=== PATIENT | female | born 1950 | race Caucasian/White ===

== ENCOUNTER 2018-12-04 12:29 | Outpatient (RCR) | payer MEDICARE, OTHER ==
[~2018-12-04] VITALS: Ht 160 cm; Wt 81.6 kg
[~2018-12-04 12:29] MED LIST: ESCT10T; HCTZ12.5T; IRB150T; MELO7.5T; RLX60T
[2018-12-04] MEDS ORDERED: [UNRECOGNIZED DRUG - REMARK] IV ONE (13:00)
[2018-12-04] MEDS ORDERED: [UNRECOGNIZED DRUG - REMARK] IV NR ×4 (13:15)
[2018-12-04 13:31] LABS: HEMOGLOBIN 11.9 G/DL (11.5-16.0); MEAN PLATELET VOLUME 11.3 FL (7.4-10.4); RED CELL DISTRIBUTION WIDTH 15.3 % (10.0-14.5); WHITE BLOOD COUNT 8.2 10^3/uL (4.3-11.0)
[2018-12-04 13:43] LABS: ALBUMIN 3.9 GM/DL (3.2-4.5); BILIRUBIN,DIRECT 0.2 MG/DL (0.0-0.3); BILIRUBIN,INDIRECT 0.5 MG/DL; BILIRUBIN,TOTAL 0.7 MG/DL (0.1-1.0); TOTAL PROTEIN 6.5 GM/DL (6.4-8.2)
[2018-12-04 14:18] VITALS: BP 144/77
== END 2019-03-04 | disposition home or self-care (01) ==
LOC: SDC 12:29
PROVIDERS: ATTEND Internal Medicine Rheumatology
DX: M05.79 Rheumatoid arthritis with rheumatoid factor of multiple sites without organ or systems involvement (principal)
CPT/HCPCS: 36415; 80076; 85027; 96365; J0129

== ENCOUNTER → 2019-04-28 | Outpatient (CLI) | payer MEDICARE, OTHER ==
[~2019-04-28] VITALS: Ht 160 cm; Wt 81.6 kg
[~2019-04-28] MED LIST changes: +ABATACEPT IV NR; +ABATACEPT IV ONE; +ABATACEPT IV SCH; +NS IV NR; +NS IV ONE; +SODIUM CHLORIDE IV SCH; +[UNRECOGNIZED DRUG - REMARK] IV NR
[2019-04-28 12:36] LABS: HEMOGLOBIN 12.3 G/DL (11.5-16.0); MEAN PLATELET VOLUME 10.9 FL (7.4-10.4); RED CELL DISTRIBUTION WIDTH 14.9 % (10.0-14.5); WHITE BLOOD COUNT 7.5 10^3/uL (4.3-11.0)
[2019-04-28 12:54] LABS: BILIRUBIN,DIRECT 0.3 MG/DL (0.0-0.3); BILIRUBIN,INDIRECT 0.4 MG/DL; BILIRUBIN,TOTAL 0.7 MG/DL (0.1-1.0); TOTAL PROTEIN 6.4 GM/DL (6.4-8.2)
[2019-04-28 13:14] VITALS: BP 115/41
== END ==
LOC: SDC 12:19
PROVIDERS: ATTEND Internal Medicine Rheumatology
DX: M06.9 Rheumatoid arthritis, unspecified (principal)
CPT/HCPCS: 36415; 80076; 85027; J0129

== ENCOUNTER 2019-07-27 12:12 | Outpatient (RCR) | payer MEDICARE, OTHER ==
[2019-05-26 12:00] VITALS: BP 139/83
[2019-06-23 12:05] VITALS: BP 150/82
[2019-06-23 12:42] LABS: HEMOGLOBIN 12.4 G/DL (11.5-16.0); MEAN PLATELET VOLUME 10.6 FL (7.4-10.4); RED CELL DISTRIBUTION WIDTH 15.2 % (10.0-14.5); WHITE BLOOD COUNT 7.6 10^3/uL (4.3-11.0)
[2019-06-23 13:01] LABS: ALBUMIN 3.9 GM/DL (3.2-4.5); BILIRUBIN,DIRECT 0.3 MG/DL (0.0-0.3); BILIRUBIN,INDIRECT 0.5 MG/DL; BILIRUBIN,TOTAL 0.8 MG/DL (0.1-1.0); TOTAL PROTEIN 6.3 GM/DL (6.4-8.2)
[~2019-07-27 12:12] MED LIST changes: -ABATACEPT IV NR; -ABATACEPT IV ONE; -ABATACEPT IV SCH; -NS IV NR; -NS IV ONE; -SODIUM CHLORIDE IV SCH; +ceFAZolin INJECTION 1,000 MG ONE
[2019-07-27] MEDS ORDERED: [UNRECOGNIZED DRUG - REMARK] IV NR (12:30)
[2019-07-27 13:30] VITALS: BP 151/72
== END 2019-08-24 | disposition home or self-care (01) ==
LOC: SDC 12:12
PROVIDERS: ATTEND Internal Medicine Rheumatology
DX: M05.79 Rheumatoid arthritis with rheumatoid factor of multiple sites without organ or systems involvement (principal)
CPT/HCPCS: 36415; 80076; 85027; 96365; J0129

== ENCOUNTER 2019-08-25 10:34 | Outpatient (RCR) | payer MEDICARE, OTHER ==
[~2019-08-25] VITALS: Ht 165.1 cm
[~2019-08-25 10:34] MED LIST changes: -[UNRECOGNIZED DRUG - REMARK] IV NR; -ceFAZolin INJECTION 1,000 MG ONE
[2019-08-25 10:45] VITALS: BP 151/92
[2019-08-25] MEDS ORDERED: ABATACEPT IV SCH ×2 (10:45)
[2019-08-25] MEDS ORDERED: SODIUM CHLORIDE IV SCH ×2 (10:45)
[2019-08-25 11:03] LABS: HEMOGLOBIN 12.4 G/DL (11.5-16.0); MEAN PLATELET VOLUME 10.8 FL (7.4-10.4); RED CELL DISTRIBUTION WIDTH 14.6 % (10.0-14.5); WHITE BLOOD COUNT 7.5 10^3/uL (4.3-11.0)
[2019-08-25 11:22] LABS: ALBUMIN 4.1 GM/DL (3.2-4.5); BILIRUBIN,DIRECT 0.3 MG/DL (0.0-0.3); BILIRUBIN,INDIRECT 0.5 MG/DL; BILIRUBIN,TOTAL 0.8 MG/DL (0.1-1.0); TOTAL PROTEIN 6.3 GM/DL (6.4-8.2)
== END 2019-09-14 12:30 | disposition home or self-care (01) ==
LOC: SDC 10:34
PROVIDERS: ATTEND Internal Medicine Rheumatology
DX: M05.79 Rheumatoid arthritis with rheumatoid factor of multiple sites without organ or systems involvement (principal)
CPT/HCPCS: 36415; 80076; 85027; 96365; J0129

== ENCOUNTER → 2020-02-08 | Outpatient (CLI) | payer MEDICARE, OTHER ==
[~2020-02-08] MED LIST changes: +LIDOCAINE 1% INJ 20 ML 20 ML VIAL INJ ONE; +LIDOCAINE 1% INJ 20 ML 20 ML VIAL ONE
--- NOTE | 2020-02-08 18:23 | Diagnostic Imaging Report ---
INDICATION: Right breast nodule. Patient presents for ultrasound-guided biopsy. Correlation is made with outside imaging of the breast with ultrasound and mammography from [facility]. FINDINGS: Sonographic interrogation of the inner aspect of the right breast was performed. The previously noted hypoechoic nodule at the 4 o'clock location is not appreciated on today's study. There is a cluster of cysts at the 3 o'clock location, 5 cm from the nipple, in aggregate measuring 7 mm x 3 mm x 6 mm. This cyst cluster most likely accounts for the medial density noted mammographically. No concerning sonographic abnormality is identified on today's exam. Therefore, biopsy was not performed. IMPRESSION: Cyst cluster at 3 o'clock location in right breast 5 cm from the nipple. No concerning sonographic abnormality is seen. Biopsy was canceled. Follow-up right mammogram and right breast ultrasound in six months could be performed to confirm stability. ACR BI-RADS Category 3: Probably benign findings. Result letter will be mailed to the patient. Note: At least 10% of breast cancer is not imaged by mammography. Dictated by: Dictated on workstation # [id number]
== END ==
LOC: RAD 12:07
PROVIDERS: ATTEND Family Medicine
DX: N60.01 Solitary cyst of right breast (principal)

== ENCOUNTER → 2020-05-10 | Outpatient (CLI) | payer MEDICARE, OTHER ==
[~2020-05-10] VITALS: Ht 161.3 cm; Wt 84.0 kg
[~2020-05-10] MED LIST changes: +GOLIMUMAB IV SCH; -LIDOCAINE 1% INJ 20 ML 20 ML VIAL INJ ONE; -LIDOCAINE 1% INJ 20 ML 20 ML VIAL ONE; +SODIUM CHLORIDE IV SCH
[2020-05-10 10:45] VITALS: BP 142/93
[2020-05-10 11:27] LABS: HEMOGLOBIN 12.5 G/DL (11.5-16.0); MEAN PLATELET VOLUME 11.1 FL (7.4-10.4); WHITE BLOOD COUNT 7.7 10^3/uL (4.3-11.0)
[2020-05-10 11:39] LABS: ALANINE AMINOTRANSFERASE 38 U/L (0-55); ALBUMIN 3.9 GM/DL (3.2-4.5); ALKALINE PHOSPHATASE 50 U/L (40-136); BILIRUBIN,TOTAL 0.8 MG/DL (0.1-1.0); BUN/CREATININE RATIO 20; CALCIUM 8.9 MG/DL (8.5-10.1); CARBON DIOXIDE 26 MMOL/L (21-32); CHLORIDE 102 MMOL/L (98-107); CREATININE SERUM 0.71 MG/DL (0.60-1.30); GFR ESTIMATED > 60; GLUCOSE 106 MG/DL (70-105); POTASSIUM 3.6 MMOL/L (3.6-5.0); SODIUM 135 MMOL/L (135-145); TOTAL PROTEIN 6.7 GM/DL (6.4-8.2)
[2020-05-10 11:45] VITALS: BP 154/78
== END ==
LOC: SDC 05-09 10:54
PROVIDERS: ATTEND Internal Medicine Rheumatology
DX: M05.79 Rheumatoid arthritis with rheumatoid factor of multiple sites without organ or systems involvement (principal)
CPT/HCPCS: 36415; 80053; 85027; 96365

== ENCOUNTER → 2020-07-14 | Outpatient (CLI) | payer MEDICARE, OTHER ==
[~2020-07-14] VITALS: Ht 161.3 cm; Wt 84.1 kg
[~2020-07-14] MED LIST changes: +GOLIMUMAB IV ONE; -GOLIMUMAB IV SCH; +NS IV ONE; -SODIUM CHLORIDE IV SCH
[2020-07-14 10:25] VITALS: BP 132/78
[2020-07-14 11:02] LABS: MEAN PLATELET VOLUME 10.7 fL (9.0-12.2); WHITE BLOOD COUNT 7.6 10^3/uL (4.3-11.0)
[2020-07-14 11:13] LABS: ALBUMIN 3.9 GM/DL (3.2-4.5); CHLORIDE 101 MMOL/L (98-107)
[2020-07-14 11:14] LABS: POTASSIUM 3.5 MMOL/L (3.6-5.0); SODIUM 136 MMOL/L (135-145)
[2020-07-14 11:15] LABS: CALCIUM 8.8 MG/DL (8.5-10.1)
[2020-07-14 11:16] LABS: GLUCOSE 106 MG/DL (70-105); TOTAL PROTEIN 6.4 GM/DL (6.4-8.2)
[2020-07-14 11:17] LABS: CARBON DIOXIDE 25 MMOL/L (21-32)
[2020-07-14 11:18] LABS: BILIRUBIN,TOTAL 0.7 MG/DL (0.1-1.0)
[2020-07-14 11:19] LABS: ALKALINE PHOSPHATASE 62 U/L (40-136)
[2020-07-14 11:20] LABS: CREATININE SERUM 0.77 MG/DL (0.60-1.30); GFR ESTIMATED > 60
[2020-07-14 11:21] LABS: BUN/CREATININE RATIO 25
[2020-07-14 11:22] LABS: ALANINE AMINOTRANSFERASE 29 U/L (0-55)
== END ==
LOC: SDC 10:19
PROVIDERS: ATTEND Internal Medicine Rheumatology
DX: M05.79 Rheumatoid arthritis with rheumatoid factor of multiple sites without organ or systems involvement (principal)
CPT/HCPCS: 36415; 80053; 85027; 96365

== ENCOUNTER 2020-09-07 10:16 | Outpatient (CLI) | payer MEDICARE, OTHER ==
[~2020-09-07] VITALS: Ht 162.5 cm; Wt 86.8 kg
[~2020-09-07 10:16] MED LIST changes: -GOLIMUMAB IV ONE; -NS IV ONE
[2020-09-07 10:30] VITALS: BP 141/93
[2020-09-07] MEDS ORDERED: GOLIMUMAB IV ONE (11:00)
[2020-09-07] MEDS ORDERED: NS IV ONE (11:00)
[2020-09-07 12:15] LABS: BASOPHILS # (AUTO) 0.1 10^3/uL (0.0-0.1); BASOPHILS % (AUTO) 1 % (0-10); EOSINOPHILS # (AUTO) 0.1 10^3/uL (0.0-0.3); EOSINOPHILS % (AUTO) 2 % (0-10); HEMATOCRIT 36 % (35-52); HEMOGLOBIN 11.8 g/dL (11.5-16.0); LYMPHOCYTES # (AUTO) 2.2 10^3/uL (1.0-4.0); LYMPHOCYTES % (AUTO) 32 % (12-44); MEAN CORPUSCULAR HEMOGLOBIN 30 pg (25-34); MEAN CORPUSCULAR HGB CONC 33 g/dL (32-36); MEAN CORPUSCULAR VOLUME 91 fL (80-99); MEAN PLATELET VOLUME 10.5 fL (9.0-12.2); MONOCYTES # (AUTO) 0.5 10^3/uL (0.0-1.0); MONOCYTES % (AUTO) 7 % (0-12); NEUTROPHILS % (AUTO) 59 % (42-75); PLATELET COUNT 233 10^3/uL (130-400); WHITE BLOOD COUNT 6.8 10^3/uL (4.3-11.0)
[2020-09-07 12:31] LABS: ALBUMIN 3.7 GM/DL (3.2-4.5)
[2020-09-07 12:32] LABS: CHLORIDE 102 MMOL/L (98-107); POTASSIUM 3.3 MMOL/L (3.6-5.0); SODIUM 139 MMOL/L (135-145)
[2020-09-07 12:34] LABS: GLUCOSE 85 MG/DL (70-105); TOTAL PROTEIN 6.2 GM/DL (6.4-8.2)
[2020-09-07 12:35] LABS: CARBON DIOXIDE 27 MMOL/L (21-32)
[2020-09-07 12:36] LABS: BILIRUBIN,TOTAL 0.5 MG/DL (0.1-1.0)
[2020-09-07 12:38] LABS: ALKALINE PHOSPHATASE 46 U/L (40-136); CREATININE SERUM 0.76 MG/DL (0.60-1.30); GFR ESTIMATED > 60
[2020-09-07 12:39] LABS: BUN/CREATININE RATIO 18
[2020-09-07 12:41] LABS: ALANINE AMINOTRANSFERASE 30 U/L (0-55)
== END 2020-09-07 12:10 | disposition home or self-care (01) ==
LOC: SDC 10:16
PROVIDERS: ATTEND Internal Medicine Rheumatology
DX: M05.79 Rheumatoid arthritis with rheumatoid factor of multiple sites without organ or systems involvement (principal)
CPT/HCPCS: 36415; 80053; 85025; 96365

== ENCOUNTER → 2020-11-01 | Outpatient (CLI) | payer MEDICARE, OTHER ==
[~2020-11-01] VITALS: Ht 165.1 cm; Wt 86.8 kg
[2020-11-01 10:41] LABS: HEMOGLOBIN 12.2 g/dL (11.5-16.0); MEAN PLATELET VOLUME 10.8 fL (9.0-12.2); WHITE BLOOD COUNT 7.4 10^3/uL (4.3-11.0)
[2020-11-01 11:02] LABS: ALANINE AMINOTRANSFERASE 41 U/L (0-55); ALBUMIN 3.9 GM/DL (3.2-4.5); ALKALINE PHOSPHATASE 50 U/L (40-136); BILIRUBIN,TOTAL 0.8 MG/DL (0.1-1.0); BUN/CREATININE RATIO 21; CALCIUM 8.9 MG/DL (8.5-10.1); CARBON DIOXIDE 27 MMOL/L (21-32); CHLORIDE 102 MMOL/L (98-107); CREATININE SERUM 0.78 MG/DL (0.60-1.30); GFR ESTIMATED > 60; GLUCOSE 103 MG/DL (70-105); POTASSIUM 3.5 MMOL/L (3.6-5.0); SODIUM 137 MMOL/L (135-145); TOTAL PROTEIN 6.5 GM/DL (6.4-8.2)
[2020-11-01 11:20] VITALS: BP 153/97
== END ==
LOC: SDC 10:04
PROVIDERS: ATTEND Internal Medicine Rheumatology
DX: M05.79 Rheumatoid arthritis with rheumatoid factor of multiple sites without organ or systems involvement (principal)
CPT/HCPCS: 36415; 80053; 85027

== ENCOUNTER → 2020-11-01 | Outpatient (CLI) | payer MEDICARE, OTHER ==
[2020-11-01 10:41] LABS: HEMOGLOBIN 12.2 g/dL (11.5-16.0); MEAN PLATELET VOLUME 10.8 fL (9.0-12.2); WHITE BLOOD COUNT 7.4 10^3/uL (4.3-11.0)
[2020-11-01 11:02] LABS: ALANINE AMINOTRANSFERASE 41 U/L (0-55); ALBUMIN 3.9 GM/DL (3.2-4.5); ALKALINE PHOSPHATASE 50 U/L (40-136); BILIRUBIN,TOTAL 0.8 MG/DL (0.1-1.0); BUN/CREATININE RATIO 21; CALCIUM 8.9 MG/DL (8.5-10.1); CARBON DIOXIDE 27 MMOL/L (21-32); CHLORIDE 102 MMOL/L (98-107); CREATININE SERUM 0.78 MG/DL (0.60-1.30); GFR ESTIMATED > 60; GLUCOSE 103 MG/DL (70-105); POTASSIUM 3.5 MMOL/L (3.6-5.0); SODIUM 137 MMOL/L (135-145); TOTAL PROTEIN 6.5 GM/DL (6.4-8.2)
== END ==
LOC: LAB 10:15
PROVIDERS: ATTEND Internal Medicine Rheumatology
DX: M05.79 Rheumatoid arthritis with rheumatoid factor of multiple sites without organ or systems involvement (principal)
CPT/HCPCS: 36415; 80053; 85027

== ENCOUNTER → 2020-12-30 | Outpatient (CLI) | payer MEDICARE, OTHER ==
[~2020-12-30] MED LIST changes: +GOLIMUMAB IV ONE; +NS IV ONE
[2020-12-30 10:35] LABS: BASOPHILS # (AUTO) 0.1 10^3/uL (0.0-0.1); BASOPHILS % (AUTO) 1 % (0-10); EOSINOPHILS # (AUTO) 0.2 10^3/uL (0.0-0.3); EOSINOPHILS % (AUTO) 2 % (0-10); HEMATOCRIT 38 % (35-52); HEMOGLOBIN 12.3 g/dL (11.5-16.0); LYMPHOCYTES # (AUTO) 2.1 10^3/uL (1.0-4.0); LYMPHOCYTES % (AUTO) 27 % (12-44); MEAN CORPUSCULAR HEMOGLOBIN 30 pg (25-34); MEAN CORPUSCULAR HGB CONC 33 g/dL (32-36); MEAN CORPUSCULAR VOLUME 92 fL (80-99); MEAN PLATELET VOLUME 10.5 fL (9.0-12.2); MONOCYTES # (AUTO) 0.5 10^3/uL (0.0-1.0); MONOCYTES % (AUTO) 7 % (0-12); NEUTROPHILS # (AUTO) 4.8 10^3/uL (1.8-7.8); NEUTROPHILS % (AUTO) 63 % (42-75); PLATELET COUNT 239 10^3/uL (130-400); WHITE BLOOD COUNT 7.7 10^3/uL (4.3-11.0)
[2020-12-30 10:45] LABS: ALBUMIN 3.9 GM/DL (3.2-4.5); CHLORIDE 99 MMOL/L (98-107); POTASSIUM 3.5 MMOL/L (3.6-5.0); SODIUM 136 MMOL/L (135-145)
[2020-12-30 10:46] LABS: CALCIUM 8.9 MG/DL (8.5-10.1)
[2020-12-30 10:47] LABS: GLUCOSE 109 MG/DL (70-105); TOTAL PROTEIN 6.5 GM/DL (6.4-8.2)
[2020-12-30 10:48] LABS: CARBON DIOXIDE 28 MMOL/L (21-32)
[2020-12-30 10:49] LABS: BILIRUBIN,TOTAL 0.7 MG/DL (0.1-1.0)
[2020-12-30 10:51] LABS: ALKALINE PHOSPHATASE 54 U/L (40-136); CREATININE SERUM 0.73 MG/DL (0.60-1.30); GFR ESTIMATED > 60
[2020-12-30 10:52] LABS: BUN/CREATININE RATIO 16
[2020-12-30 10:54] LABS: ALANINE AMINOTRANSFERASE 28 U/L (0-55)
[2020-12-30 11:10] VITALS: BP_SYST 123; BP_SYST 172; BP_DIAS 56; BP_DIAS 80
== END ==
LOC: SDC 09:56
PROVIDERS: ATTEND Internal Medicine Rheumatology
DX: M05.9 Rheumatoid arthritis with rheumatoid factor, unspecified (principal)
CPT/HCPCS: 36415; 80053; 85025; 96365

== ENCOUNTER 2021-02-24 09:48 | Outpatient (CLI) | payer MEDICARE, OTHER ==
[~2021-02-24] VITALS: Ht 161.3 cm; Wt 84.0 kg
[2021-02-24 08:50] VITALS: BP 158/84
[~2021-02-24 09:48] MED LIST changes: -GOLIMUMAB IV ONE; -NS IV ONE
[2021-02-24 10:44] LABS: BASOPHILS % (AUTO) 1 % (0-10); EOSINOPHILS # (AUTO) 0.2 10^3/uL (0.0-0.3); EOSINOPHILS % (AUTO) 3 % (0-10); HEMATOCRIT 38 % (35-52); HEMOGLOBIN 12.2 g/dL (11.5-16.0); LYMPHOCYTES % (AUTO) 31 % (12-44); MEAN CORPUSCULAR HEMOGLOBIN 30 pg (25-34); MEAN CORPUSCULAR HGB CONC 32 g/dL (32-36); MEAN CORPUSCULAR VOLUME 92 fL (80-99); MEAN PLATELET VOLUME 10.5 fL (9.0-12.2); MONOCYTES # (AUTO) 0.6 10^3/uL (0.0-1.0); MONOCYTES % (AUTO) 8 % (0-12); NEUTROPHILS # (AUTO) 3.7 10^3/uL (1.8-7.8); NEUTROPHILS % (AUTO) 56 % (42-75); PLATELET COUNT 235 10^3/uL (130-400); WHITE BLOOD COUNT 6.6 10^3/uL (4.3-11.0)
[2021-02-24] MEDS ORDERED: NS IV NR (11:00)
[2021-02-24] MEDS ORDERED: GOLIMUMAB IV NR (11:00)
[2021-02-24 11:02] LABS: ALANINE AMINOTRANSFERASE 33 U/L (0-55); ALBUMIN 3.8 GM/DL (3.2-4.5); ALKALINE PHOSPHATASE 61 U/L (40-136); BILIRUBIN,TOTAL 0.6 MG/DL (0.1-1.0); BUN/CREATININE RATIO 23; CALCIUM 9.4 MG/DL (8.5-10.1); CARBON DIOXIDE 27 MMOL/L (21-32); CHLORIDE 103 MMOL/L (98-107); CREATININE SERUM 0.73 MG/DL (0.60-1.30); GFR ESTIMATED > 60; GLUCOSE 103 MG/DL (70-105); POTASSIUM 3.6 MMOL/L (3.6-5.0); SODIUM 139 MMOL/L (135-145); TOTAL PROTEIN 6.3 GM/DL (6.4-8.2)
== END 2021-02-24 12:00 | disposition home or self-care (01) ==
LOC: SDC 09:48
PROVIDERS: ATTEND Internal Medicine Rheumatology
DX: M05.79 Rheumatoid arthritis with rheumatoid factor of multiple sites without organ or systems involvement (principal)
CPT/HCPCS: 36415; 36591; 80053; 85025; 96365; 96523

== ENCOUNTER 2021-03-15 11:46 | Emergency (ER) | payer MEDICARE, OTHER ==
[~2021-03-15] VITALS: Ht 160 cm; Wt 85.0 kg
--- NOTE | 2021-03-15 12:14 | ED General ---
General Chief Complaint: - Urinary Stated Complaint: COVID+; NOT URINATING History of Present Illness Date Seen by Provider: Mar 15, 2021 Time Seen by Provider: 12:05 Initial Comments 70-year-old female presents with generalized malaise, not feeling well since having Covid 2 days ago feels like she is getting worse. Was diagnosed at a local urgent care and sent home with "no treatment". She feels like she is not urinating very often although she has been drinking fluids denies any chest pain or wheezing or significant shortness of air. Denies any chest pain or tightness. Denies abdominal pain nausea vomiting. Allergies and Home Medications Allergies Coded Allergies: Latex (Unverified Allergy, Unknown, 08/08/06) Morphine (Unverified Allergy, Unknown, WATER BLISTERS, PT THINKS IT IS DUE TO LATEX, 08/13/06) Home Medications Sulfamethoxazole/Trimethoprim 1 Each Tablet, 1 EACH PO BID Prescribed by: NADEEM LESLIE on 03/15/21 4767 Patient Home Medication List Home Medication List Reviewed: Yes Review of Systems Review of Systems Constitutional: No chills, No dizziness, No fever; malaise, weakness EENTM: no symptoms reported Respiratory: cough; No short of breath, No wheezing Cardiovascular: No chest pain, No edema, No palpitations, No syncope Gastrointestinal: No abdominal pain, No diarrhea; loss of appetite; No nausea, No vomiting Musculoskeletal: No back pain; joint pain (chronic- RA) Skin: No change in color, No lesions, No rash Psychiatric/Neurological: Denies Headache; Weakness Past Wmxsmne-Yjntbp-Fpbopl Hx Patient Social History Tobacco Use?: Yes Past Medical History Reproductive Disorders: No Physical Exam Vital Signs Vital Signs - First Documented 03/15/21 11:55 Temp 36.5 Pulse 67 Resp 18 B/P (MAP) 125/45 (71) Pulse Ox 98 O2 Delivery Room Air Capillary Refill : Height, Weight, BMI Height: 5'3.00" Weight: 180lbs. 0.0oz. [id number]; 32.32 BMI Method: General Appearance: No Apparent Distress, WD/WN Respiratory: Chest Non Tender, Lungs Clear, Normal Breath Sounds, No Accessory Muscle Use, No Respiratory Distress Cardiovascular: Regular Rate, Rhythm, No Edema, No Gallop, No JVD Gastrointestinal: Normal Bowel Sounds, Non Tender, Soft Back: Normal Inspection, No CVA Tenderness Extremity: Normal Capillary Refill, Non Tender Neurologic/Psychiatric: Alert, Oriented x3, No Motor/Sensory Deficits, Normal Mood/Affect Focused Exam Lactate Level 03/15/21 12:25: Lactic Acid Level 0.62 Lactic Acid Level Laboratory Tests Test 03/15/21 12:25 Lactic Acid Level 0.62 MMOL/L (0.50-2.00) Progress/Results/Core Measures Suspected Sepsis SIRS Temperature: Pulse: Respiratory Rate: Laboratory Tests 03/15/21 12:25: White Blood Count 5.8 Blood Pressure / Mean: 03/15/21 12:25: Lactic Acid Level 0.62 Laboratory Tests 03/15/21 12:25: Creatinine 0.99, Platelet Count 162, Total Bilirubin 0.4 Results/Orders Lab Results Laboratory Tests Test 03/15/21 12:25 03/15/21 13:15 Range/Units White Blood Count 5.8 4.3-11.0 10^3/uL Red Blood Count 4.21 L 4.35-5.85 10^6/uL Hemoglobin 12.2 11.5-16.0 G/DL Hematocrit 38 35-52 % Mean Corpuscular Volume 90 80-99 FL Mean Corpuscular Hemoglobin 29 25-34 PG Mean Corpuscular Hemoglobin Concent 32 32-36 G/DL Red Cell Distribution Width 14.6 H 10.0-14.5 % Platelet Count 162 130-400 10^3/uL Mean Platelet Volume 10.4 7.4-10.4 FL Immature Granulocyte % (Auto) 1 % Neutrophils (%) (Auto) 67 42-75 % Lymphocytes (%) (Auto) 23 12-44 % Monocytes (%) (Auto) 9 0-12 % Eosinophils (%) (Auto) 0 0-10 % Basophils (%) (Auto) 0 0-10 % Neutrophils # (Auto) 3.9 1.8-7.8 X 10^3 Lymphocytes # (Auto) 1.3 1.0-4.0 X 10^3 Monocytes # (Auto) 0.5 0.0-1.0 X 10^3 Eosinophils # (Auto) 0.0 0.0-0.3 10^3/uL Basophils # (Auto) 0.0 0.0-0.1 10^3/uL Immature Granulocyte # (Auto) 0.3 H 0.0-0.1 10^3/uL Sodium Level 132 L 135-145 MMOL/L Potassium Level 3.2 L 3.6-5.0 MMOL/L Chloride Level 93 L 98-107 MMOL/L Carbon Dioxide Level 25 21-32 MMOL/L Anion Gap 14 5-14 MMOL/L Blood Urea Nitrogen 26 H 7-18 MG/DL Creatinine 0.99 0.60-1.30 MG/DL Estimat Glomerular Filtration Rate 55 BUN/Creatinine Ratio 26 Glucose Level 113 H 70-105 MG/DL Lactic Acid Level 0.62 0.50-2.00 MMOL/L Calcium Level 8.4 L 8.5-10.1 MG/DL Corrected Calcium 8.9 8.5-10.1 MG/DL Total Bilirubin 0.4 0.1-1.0 MG/DL Aspartate Amino Transf (AST/SGOT) 34 5-34 U/L Alanine Aminotransferase (ALT/SGPT) 24 0-55 U/L Alkaline Phosphatase 46 40-136 U/L Troponin I < 0.30 <0.30 NG/ML Total Protein 6.4 6.4-8.2 GM/DL Albumin 3.4 3.2-4.5 GM/DL Urine Color YELLOW Urine Clarity SLT CLOUDY Urine pH 6.0 5-9 Urine Specific [place] 1.020 1.016-1.022 Urine Protein NEGATIVE NEGATIVE Urine Glucose (UA) NEGATIVE NEGATIVE Urine Ketones NEGATIVE NEGATIVE Urine Nitrite POSITIVE H NEGATIVE Urine Bilirubin NEGATIVE NEGATIVE Urine Urobilinogen 0.2 < = 1.0 MG/DL Urine Leukocyte Esterase 1+ H NEGATIVE Urine RBC (Auto) TRACE H NEGATIVE Urine RBC RARE /HPF Urine WBC 25-50 H /HPF Urine Squamous Epithelial Cells 2-5 /HPF Urine Crystals NONE /LPF Urine Bacteria FEW H /HPF Urine Casts PRESENT /LPF Urine Hyaline Casts 0-2 H /LPF Urine Mucus NEGATIVE /LPF Urine Culture Indicated YES My Orders Orders - ROVENSTINEJAVONNADEEM L DO Ed Iv/Invasive Line Start (03/15/21 12:14) Urinalysis (03/15/21 12:14) Troponin I Fs (03/15/21 12:14) Comprehensive Metabolic Panel (03/15/21 12:14) Cbc With Automated Diff (03/15/21 12:14) Lactic Acid Analyzer (03/15/21 12:14) Chest 1 View Ap/Pa Only (03/15/21 12:14) Ns Iv 1000 Ml (Sodium Chloride 0.9%) (03/15/21 12:45) Urine Culture (03/15/21 13:15) Vital Signs/I&O 03/15/21 11:55 Temp 36.5 Pulse 67 Resp 18 B/P (MAP) 125/45 (71) Pulse Ox 98 O2 Delivery Room Air Capillary Refill : Diagnostic Imaging Diagonstic Imaging: Xray Plain Films/CT/US/NM/MRI: chest Comments Date of Exam:03/15/21 CHEST 1 VIEW AP/PA ONLY INDICATION: COVID patient with weakness. COMPARISON: No relevant comparison. FINDINGS: There is no focal consolidation. The heart size and pulmonary vascularity are within normal limits. Catheter via the right IJ has its tip near the cavoatrial junction. There is no pneumothorax. No pleural fluid. No free air beneath the diaphragms. IMPRESSION: No focal consolidation or acute pleural pathology. Indwelling PICC line at or just below the cavoatrial junction. Dictated on workstation # [id number] Dict: 03/15/21 1239 Trans: 03/15/21 1246 [id number] Interpreted by: TIMUR JACKSON Electronically signed by: Departure Impression Primary Impression: Urinary tract infection Qualified Codes: N39.0 - Urinary tract infection, site not specified Disposition: 01 HOME, SELF-CARE Condition: Stable Departure-Patient Inst. Decision time for Depature: 13:49 Referrals: SARAH COSTELLO MD (PCP/Family) Primary Care Physician Patient Instructions: Urinary Tract Infection, Adult (DC) Add. Discharge Instructions: follow up with Dr Costello in 1 week, sooner if worse All discharge instructions reviewed with patient and/or family. Voiced understanding. Scripts Sulfamethoxazole/Trimethoprim (Bactrim Ds Tablet) 1 Each Tablet 1 EACH PO BID, #14 TAB Prov: NADEEM LESLIE DO 03/15/21 NADEEM LESLIE DO Mar 15, 2021 12:14
[2021-03-15 12:36] LABS: HEMATOCRIT 38 % (35-52); HEMOGLOBIN 12.2 G/DL (11.5-16.0); MEAN CORPUSCULAR HEMOGLOBIN 29 PG (25-34); MEAN CORPUSCULAR HGB CONC 32 G/DL (32-36); MEAN CORPUSCULAR VOLUME 90 FL (80-99); MEAN PLATELET VOLUME 10.4 FL (7.4-10.4); PLATELET COUNT 162 10^3/uL (130-400); WHITE BLOOD COUNT 5.8 10^3/uL (4.3-11.0)
[2021-03-15 12:37] LABS: BASOPHILS % (AUTO) 0 % (0-10); EOSINOPHILS % (AUTO) 0 % (0-10); LYMPHOCYTES # (AUTO) 1.3 X 10^3 (1.0-4.0); LYMPHOCYTES % (AUTO) 23 % (12-44); MONOCYTES # (AUTO) 0.5 X 10^3 (0.0-1.0); MONOCYTES % (AUTO) 9 % (0-12); NEUTROPHILS # (AUTO) 3.9 X 10^3 (1.8-7.8); NEUTROPHILS % (AUTO) 67 % (42-75)
[2021-03-15] MEDS ORDERED: NS IV 1000 ML 1,000 ML IV SCH (12:45)
--- NOTE | 2021-03-15 12:46 | Diagnostic Imaging Report ---
INDICATION: COVID patient with weakness. COMPARISON: No relevant comparison. FINDINGS: There is no focal consolidation. The heart size and pulmonary vascularity are within normal limits. Catheter via the right IJ has its tip near the cavoatrial junction. There is no pneumothorax. No pleural fluid. No free air beneath the diaphragms. IMPRESSION: No focal consolidation or acute pleural pathology. Indwelling PICC line at or just below the cavoatrial junction. Dictated by: Dictated on workstation # [id number]
[2021-03-15 12:57] LABS: ALKALINE PHOSPHATASE 46 U/L (40-136); BILIRUBIN,TOTAL 0.4 MG/DL (0.1-1.0); BUN/CREATININE RATIO 26; CALCIUM 8.4 MG/DL (8.5-10.1); CARBON DIOXIDE 25 MMOL/L (21-32); CHLORIDE 93 MMOL/L (98-107); CREATININE SERUM 0.99 MG/DL (0.60-1.30); GFR ESTIMATED 55; GLUCOSE 113 MG/DL (70-105); POTASSIUM 3.2 MMOL/L (3.6-5.0); SODIUM 132 MMOL/L (135-145)
[2021-03-15 12:58] LABS: ALANINE AMINOTRANSFERASE 24 U/L (0-55); ALBUMIN 3.4 GM/DL (3.2-4.5); TOTAL PROTEIN 6.4 GM/DL (6.4-8.2)
[2021-03-15 13:45] LABS: CLARITY,URINE SLT CLOUDY; COLOR,URINE YELLOW
[2021-03-15 13:46] LABS: BACTERIA,URINE FEW /HPF; BILIRUBIN,URINE NEGATIVE (NEGATIVE); GLUCOSE, URINE (UA) NEGATIVE (NEGATIVE); HYALINE CASTS, URINE 0-2 /LPF; KETONES,URINE NEGATIVE (NEGATIVE); LEUKOCYTE ESTERASE ,URINE 1+ (NEGATIVE); NITRITE,URINE POSITIVE (NEGATIVE); PROTEIN,URINE NEGATIVE (NEGATIVE); RBC,URINE RARE /HPF; WBC,URINE 25-50 /HPF
[2021-03-15] MEDS ORDERED: SULF1TAB38 PO (13:52)
[2021-03-15 13:55] VITALS: BP 132/62
== END 2021-03-15 13:57 | disposition home or self-care (01) ==
LOC: EDUNIT# 11:46 → ER FS 11:48
DX: N39.0 Urinary tract infection, site not specified (principal); U07.1 COVID-19
CPT/HCPCS: 36415; 71045; 80053; 81000; 83605; 84484; 85025; 87088

== ENCOUNTER 2021-03-21 18:07 | Inpatient (IN) | payer MEDICARE, OTHER ==
[~2021-03-21] VITALS: Ht 161.3 cm; Wt 81.2 kg
[~2021-03-21 18:07] MED LIST changes: +SULF1TAB38 PO
--- NOTE | 2021-03-21 18:15 | ED General ---
General Stated Complaint: AMS History of Present Illness Date Seen by Provider: Mar 21, 2021 Time Seen by Provider: 18:15 Initial Comments Patient presenting to the emergency department for evaluation of multiple symptoms including cough shortness of breath confusion dizziness chills nausea and generally not feeling well. She does seem to have some confusion so getting the timing of her symptoms is somewhat difficult but from the previous chart on February it says that she tested positive for Covid 2 days prior to her ER visit and she thinks she had symptoms for several days before she tested positive for Covid. She was diagnosed with a urinary tract infection 6 days ago and started on Bactrim but she says she is feeling worse. She says she has rheumatoid arthritis and takes medication for it but does not know what it is and she does not know if it is an immune suppressant. She denies a history of COPD or asthma or prior coronary disease. She does not have to wear oxygen at home however her oxygen saturation on room air is 82% and is requiring 4 L to maintain her oxygen saturation in the 90s. No measured fevers but she feels chills and her cough has been mostly nonproductive. She appears to be in mild respiratory distress but is nontoxic. Allergies and Home Medications Allergies Coded Allergies: Latex (Unverified Allergy, Unknown, 08/08/06) Morphine (Unverified Allergy, Unknown, WATER BLISTERS, PT THINKS IT IS DUE TO LATEX, 08/13/06) Home Medications Sulfamethoxazole/Trimethoprim 1 Each Tablet, 1 EACH PO BID Prescribed by: NADEEM LESLIE on 03/15/21 1352 Patient Home Medication List Home Medication List Reviewed: Yes Review of Systems Review of Systems Constitutional: chills, dizziness, weakness EENTM: nose congestion Respiratory: cough, short of breath Cardiovascular: no symptoms reported Gastrointestinal: nausea Genitourinary: no symptoms reported Musculoskeletal: joint pain, muscle pain Skin: no symptoms reported Psychiatric/Neurological: Other (Confusion) All Other Systems Reviewed Negative Unless Noted: Yes Past Cmcgvjq-Siuqar-Pyfoox Hx Past Medical History Reproductive Disorders: No Physical Exam Vital Signs Vital Signs - First Documented 03/21/21 18:13 Temp 36.2 Pulse 79 Resp 20 B/P (MAP) 128/60 (82) Pulse Ox 92 O2 Delivery Nasal Cannula O2 Flow Rate 5.00 Capillary Refill : Height, Weight, BMI Height: 5'3.00" Weight: 180lbs. 0.0oz. 81.613095ji; 33.00 BMI Method: General Appearance: Mild Distress HEENT: PERRL/EOMI Neck: Supple Respiratory: Decreased Breath Sounds, Respiratory Distress Cardiovascular: Regular Rate, Rhythm, No Edema Gastrointestinal: Non Tender, Soft Back: Normal Inspection Extremity: Normal Capillary Refill Neurologic/Psychiatric: Alert, Oriented x3 Skin: Warm/Dry Focused Exam Lactate Level 03/21/21 18:40: Lactic Acid Level 1.47 Lactic Acid Level Laboratory Tests Test 03/21/21 18:40 Lactic Acid Level 1.47 MMOL/L (0.50-2.00) Progress/Results/Core Measures Suspected Sepsis SIRS Temperature: Pulse: Respiratory Rate: Laboratory Tests 03/21/21 18:40: White Blood Count 6.9 Blood Pressure / Mean: 03/21/21 18:40: Lactic Acid Level 1.47 Laboratory Tests 03/21/21 18:40: Creatinine 1.29, INR Comment 1.0, Platelet Count 308, Total Bilirubin 0.6 Results/Orders Lab Results Laboratory Tests Test 03/21/21 18:40 03/21/21 19:19 Range/Units White Blood Count 6.9 4.3-11.0 10^3/uL Red Blood Count 4.21 L 4.35-5.85 10^6/uL Hemoglobin 12.2 11.5-16.0 G/DL Hematocrit 37 35-52 % Mean Corpuscular Volume 88 80-99 FL Mean Corpuscular Hemoglobin 29 25-34 PG Mean Corpuscular Hemoglobin Concent 33 32-36 G/DL Red Cell Distribution Width 14.4 10.0-14.5 % Platelet Count 308 130-400 10^3/uL Mean Platelet Volume 10.3 7.4-10.4 FL Immature Granulocyte % (Auto) 0 % Neutrophils (%) (Auto) 69 42-75 % Lymphocytes (%) (Auto) 21 12-44 % Monocytes (%) (Auto) 9 0-12 % Eosinophils (%) (Auto) 0 0-10 % Basophils (%) (Auto) 0 0-10 % Neutrophils # (Auto) 4.8 1.8-7.8 X 10^3 Lymphocytes # (Auto) 1.5 1.0-4.0 X 10^3 Monocytes # (Auto) 0.6 0.0-1.0 X 10^3 Eosinophils # (Auto) 0.0 0.0-0.3 10^3/uL Basophils # (Auto) 0.0 0.0-0.1 10^3/uL Immature Granulocyte # (Auto) 0.0 0.0-0.1 10^3/uL Prothrombin Time 13.1 12.2-14.7 SEC INR Comment 1.0 0.8-1.4 Activated Partial Thromboplast Time 30 24-35 SEC D-Dimer 1.34 H 0.00-0.49 UG/ML Sodium Level 132 L 135-145 MMOL/L Potassium Level 3.8 3.6-5.0 MMOL/L Chloride Level 90 L 98-107 MMOL/L Carbon Dioxide Level 26 21-32 MMOL/L Anion Gap 16 H 5-14 MMOL/L Blood Urea Nitrogen 26 H 7-18 MG/DL Creatinine 1.29 0.60-1.30 MG/DL Estimat Glomerular Filtration Rate 41 BUN/Creatinine Ratio 20 Glucose Level 133 H 70-105 MG/DL Lactic Acid Level 1.47 0.50-2.00 MMOL/L Calcium Level 9.3 8.5-10.1 MG/DL Corrected Calcium 9.7 8.5-10.1 MG/DL Total Bilirubin 0.6 0.1-1.0 MG/DL Aspartate Amino Transf (AST/SGOT) 40 H 5-34 U/L Alanine Aminotransferase (ALT/SGPT) 20 0-55 U/L Alkaline Phosphatase 49 40-136 U/L Troponin I < 0.30 <0.30 NG/ML Pro-B-Type Natriuretic Peptide 207.3 H <75.0 PG/ML Total Protein 7.0 6.4-8.2 GM/DL Albumin 3.5 3.2-4.5 GM/DL Blood Gas Puncture Site LT BRACHIAL Blood Gas Patient Temperature 36.2 Arterial Blood pH 7.47 H 7.37-7.43 Arterial Blood Partial Pressure CO2 45 35-45 MMHG Arterial Blood Partial Pressure O2 64 L 79-93 MMHG Arterial Blood HCO3 33 H 23-27 MMOL/L Arterial Blood Total CO2 34.2 H 21.0-31.0 MMOL/L Arterial Blood Oxygen Saturation 93 L 94-100 % Arterial Blood Base Excess 8.1 H -2.5-2.5 MMOL/L Alfredo Test NA Blood Gas Ventilator Setting NO Blood Gas Inspired Oxygen NC5L My Orders Orders - MELVIN FINN DO Iv/Invasive Line Insertion .IV start (03/21/21 18:23) Blood Culture (03/21/21 18:23) Cbc With Automated Diff (03/21/21 18:23) Comprehensive Metabolic Panel (03/21/21 18:23) Fibrin Degradation Products (03/21/21 18:23) Arterial Blood Gas (03/21/21 18:23) Lactic Acid Analyzer (03/21/21 18:23) Partial Thromboplastin Time (03/21/21 18:23) Probnp Fs (03/21/21 18:23) Protime With Inr (03/21/21 18:23) Troponin I Fs (03/21/21 18:23) Ua Culture If Indicated (03/21/21 18:23) Chest 1 View Ap/Pa Only (03/21/21 18:23) Ekg Tracing (03/21/21 18:23) Ondansetron Injection (Zofran Injectio (03/21/21 18:30) Ns Iv 1000 Ml (Sodium Chloride 0.9%) (03/21/21 18:30) Dexamethasone Injection (Decadron Injec (03/21/21 18:30) Ct Angio Chest W (03/21/21 19:36) Iohexol Injection (Omnipaque 350 Mg/Ml 1 (03/21/21 19:45) Received Contrast (Hold Metformin- Contr (03/21/21 19:45) Ns (Ivpb) (Sodium Chloride 0.9% Ivpb Bag (03/21/21 19:45) Medications Given in ED Current Medications Medications Dose Ordered Sig/Zachery Route Start Time Stop Time Status Last Admin Dose Admin Dexamethasone Sodium Phosphate 6 mg ONCE ONCE IV 03/21/21 18:30 03/21/21 18:31 DC 03/21/21 18:38 6 MG Ondansetron HCl 4 mg ONCE ONCE IVP 03/21/21 18:30 03/21/21 18:31 DC 03/21/21 18:38 4 MG Vital Signs/I&O 03/21/21 18:13 Temp 36.2 Pulse 79 Resp 20 B/P (MAP) 128/60 (82) Pulse Ox 92 O2 Delivery Nasal Cannula O2 Flow Rate 5.00 Capillary Refill : Progress Note : Progress Note Patient appears to be hypoxic from her Covid infection. I will require additional studies to rule out any complications such as D-dimer to rule out pulmonary embolism. I will start treatment with IV fluids Zofran and Decadron and likely plan on admission. Patient has a slightly worsened x-ray in my opinion however the radiologist felt it was similar. Patient is going to get a CT of her chest for an elevated D- dimer. If positive she will need to be started on a heparin drip. She is outside of the timeframe for remdesivir but she did receive Decadron here. Given patient's respiratory failure she will require admission and she consented to treatment at [facility]. Patient will be transferred in guarded condition. She was accepted by Dr. Lundberg. Critical Care Note Critical Care Total Time (minutes) 31 Departure Impression Primary Impression: Respiratory failure Qualified Codes: J96.01 - Acute respiratory failure with hypoxia Additional Impressions: Pneumonia due to COVID-19 virus Elevated d-dimer Disposition: ADMITTED INPATIENT Condition: Improved Transfer Transfer Reason: Exceeds level of care Transfer Facility: [facility] Method of Transfer: EMS Departure-Patient Inst. Referrals: SARAH GUPTA MD (PCP/Family) Primary Care Physician MELVIN FINN DO Mar 21, 2021 18:15
[2021-03-21] MEDS ORDERED: ONDANSETRON 4 MG/2 ML (SDV) Z0FRAN IVP ONE (18:30)
[2021-03-21] MEDS ORDERED: NS IV 1000 ML 1,000 ML IV SCH ×2 (18:30→20:15)
[2021-03-21 18:53] LABS: HEMATOCRIT 37 % (35-52); HEMOGLOBIN 12.2 G/DL (11.5-16.0); LYMPHOCYTES % (AUTO) 21 % (12-44); MEAN CORPUSCULAR HEMOGLOBIN 29 PG (25-34); MEAN CORPUSCULAR HGB CONC 33 G/DL (32-36); MEAN CORPUSCULAR VOLUME 88 FL (80-99); MEAN PLATELET VOLUME 10.3 FL (7.4-10.4); MONOCYTES % (AUTO) 9 % (0-12); NEUTROPHILS % (AUTO) 69 % (42-75); PLATELET COUNT 308 10^3/uL (130-400); WHITE BLOOD COUNT 6.9 10^3/uL (4.3-11.0)
[2021-03-21 18:54] LABS: BASOPHILS % (AUTO) 0 % (0-10); EOSINOPHILS % (AUTO) 0 % (0-10); LYMPHOCYTES # (AUTO) 1.5 X 10^3 (1.0-4.0); MONOCYTES # (AUTO) 0.6 X 10^3 (0.0-1.0); NEUTROPHILS # (AUTO) 4.8 X 10^3 (1.8-7.8)
--- NOTE | 2021-03-21 18:58 | Diagnostic Imaging Report ---
EXAMINATION: Chest radiograph, portable AP view. DATE: 03/21/2021 6:44 PM INDICATION: 70-year-old female, shortness of breath. Cough. Covid positive. COMPARISON: March 15, 2021. FINDINGS: Stable overall appearance of the cardiomediastinal silhouette. There is no identified hemothorax. There is blunting of the left lateral costophrenic angle and streaky opacities in the left lung base which are unchanged. There are mild streaky opacities in the right lung base which are unchanged. There is some mild parenchymal distortion in the right midlung similar to the comparison study. IMPRESSION: 1. Streaky opacities in the lung bases are unchanged and may relate to atelectasis, infiltrate, and/or scarring. 2. Parenchymal distortion in the right midlung which is unchanged, most likely relating to scarring. Dictated by: Dictated on workstation # [id number]
[2021-03-21 19:27] LABS: FIBRIN DEGRADATION PRODUCTS 1.34 UG/ML (0.00-0.49); PROTHROMBIN TIME PATIENT 13.1 SEC (12.2-14.7)
[2021-03-21 19:28] LABS: ALANINE AMINOTRANSFERASE 20 U/L (0-55); ALKALINE PHOSPHATASE 49 U/L (40-136); BILIRUBIN,TOTAL 0.6 MG/DL (0.1-1.0); BUN/CREATININE RATIO 20; CALCIUM 9.3 MG/DL (8.5-10.1); CARBON DIOXIDE 26 MMOL/L (21-32); CHLORIDE 90 MMOL/L (98-107); CREATININE SERUM 1.29 MG/DL (0.60-1.30); GFR ESTIMATED 41; GLUCOSE 133 MG/DL (70-105); POTASSIUM 3.8 MMOL/L (3.6-5.0); SODIUM 132 MMOL/L (135-145)
[2021-03-21 19:29] LABS: ALBUMIN 3.5 GM/DL (3.2-4.5)
[2021-03-21 19:31] LABS: ABG BASE EXCESS 8.1 MMOL/L (-2.5-2.5); ABG OXYGEN SATURATION 93 % (94-100); ABG PCO2 45 MMHG (35-45); ABG PH 7.47 (7.37-7.43); ABG PO2 64 MMHG (79-93); ABG TCO2 34.2 MMOL/L (21.0-31.0)
[2021-03-21 19:32] LABS: INSPIRED O2 NC5L; PATIENT TEMP 36.2; VENTILATOR NO
[2021-03-21] MEDS ORDERED: IOHEXOL 350 MG/ML 150 ML (OMNIPAQUE 350) VIAL IV ONE (19:45)
[2021-03-21] MEDS ORDERED: NS 100 ML (IVPB) BAG IV ONE (19:45)
[2021-03-21] MEDS ORDERED: HOLD METFORMIN - RECEIVED CONTRAST 20 ML VIAL IV SCH (19:45)
[2021-03-21 20:01] LABS: SMEAR SCAN COMMENT OK
--- NOTE | 2021-03-21 20:48 | Diagnostic Imaging Report ---
PROCEDURE: CT angiography of the chest with contrast. TECHNIQUE: Multiple contiguous axial images were obtained through the chest after uneventful bolus administration of intravenous contrast. 3D reconstructed CTA MIP acquisitions were also performed. Auto Exposure Controls were utilized during the CT exam to meet ALARA standards for radiation dose reduction. DATE: March 21, 2021. COMPARISON: Chest radiograph March 21, 2021. INDICATION: 70-year-old female, shortness of breath. Covid positive. FINDINGS: There are linear opacities in the right midlung with parenchymal distortion likely relating to components of scarring. There are additional fairly linear opacities present in the lungs as well as multifocal patchy areas of alveolar consolidation. There is a right lower lobe pulmonary nodule on axial image 72 measuring 13 mm in size. There is no identified pneumothorax. There is no pleural effusion. There is opacification of a peripheral right lower lobe bronchus on axial image 103. There is no pleural effusion. The more central airways are patent. There is no identified pulmonary embolus. The main pulmonary artery is normal in caliber. The heart is not enlarged. There is no pericardial effusion. There are atherosclerotic calcifications. There is no abnormally enlarged mediastinal, hilar, or axillary lymph node meeting CT size criteria for adenopathy. There is a very small hiatal hernia. The patient is status post cholecystectomy. There is no identified acute bony abnormality. IMPRESSION: CT CHEST. 1. Multifocal bilateral lung consolidation most consistent with the provided history of Covid 19 infection and multifocal pneumonia/pneumonitis. There are some linear areas with distortion that likely relate to early findings of scarring. 2. No identified pulmonary embolus. 3. 13 mm right lower lobe pulmonary nodule. Recommend comparison with prior imaging if available to assess for stability. If stability cannot be documented, PET/CT is needed for further assessment. Both benign and malignant etiologies are in the differential diagnosis. Dictated by: Dictated on workstation # [id number]
[2021-03-21 21:43] VITALS: BP 130/77
[2021-03-21] MEDS ORDERED: CATHETER FLUSH 10 ML SYR IV PRN (22:45)
[2021-03-22 03:48] LABS: BASOPHILS % (AUTO) 0 % (0-10); EOSINOPHILS % (AUTO) 0 % (0-10); HEMATOCRIT 34 % (35-52); HEMOGLOBIN 10.8 g/dL (11.5-16.0); LYMPHOCYTES # (AUTO) 0.9 10^3/uL (1.0-4.0); LYMPHOCYTES % (AUTO) 22 % (12-44); MEAN CORPUSCULAR HEMOGLOBIN 29 pg (25-34); MEAN CORPUSCULAR HGB CONC 32 g/dL (32-36); MEAN CORPUSCULAR VOLUME 90 fL (80-99); MEAN PLATELET VOLUME 10.2 fL (9.0-12.2); MONOCYTES # (AUTO) 0.2 10^3/uL (0.0-1.0); MONOCYTES % (AUTO) 4 % (0-12); NEUTROPHILS # (AUTO) 3.1 10^3/uL (1.8-7.8); NEUTROPHILS % (AUTO) 74 % (42-75); PLATELET COUNT 284 10^3/uL (130-400); WHITE BLOOD COUNT 4.2 10^3/uL (4.3-11.0)
[2021-03-22 03:55] LABS: ALBUMIN 3.1 GM/DL (3.2-4.5); POTASSIUM 4.1 MMOL/L (3.6-5.0)
[2021-03-22 03:56] LABS: CALCIUM 8.6 MG/DL (8.5-10.1)
[2021-03-22 03:58] LABS: TOTAL PROTEIN 6.1 GM/DL (6.4-8.2)
[2021-03-22 03:59] LABS: BILIRUBIN,TOTAL 0.4 MG/DL (0.1-1.0)
[2021-03-22 04:01] LABS: CREATININE SERUM 0.96 MG/DL (0.60-1.30)
--- NOTE | 2021-03-22 05:07 | History & Physical-Hospitalist ---
History of Present Illness HPI/Chief Complaint CC: SOB from Covid-19 Pneumonia HPI: This is a 70yoWF clinic pt of Dr. Costello in [facility] who is a current smoker who presented to the [facility] ER after being diagnosed with Covid on 03/03/21. She presented with fever and SOB with wheezing found to have hypoxemia and evidence of covid pneumonia on imaging scan so the plan was to admit to cardiac stepdown and initiate Covid-19 protocol. She denies any pain. She does reports she smoke and does not need nicotine patch. We will have pulmonary consulted and home meds will be reviewed. Antibiotics initiated along with Lovenox. Source: patient, RN/MD Exam Limitations: no limitations Date Seen 03/22/21 Time Seen by a Provider: 10:00 Attending Physician Mana Lundberg DO PCP Eduardo Costello MD Referring Physician Date of Admission Mar 21, 2021 at 22:28 Home Medications & Allergies Home Medications Reviewed patient Home Medication Reconciliation performed by pharmacy medication reconciliations termite technician and/or nursing. Patients Allergies have been reviewed. Allergies Allergies Coded Allergies latex (Unverified Allergy, Unknown, 08/08/06) morphine (Unverified Allergy, Unknown, WATER BLISTERS, has rec Lortab in the past, 03/22/21) , PT THINKS IT IS DUE TO LATEX Past Xkfnply-Vyohcm-Xjlbru Hx Patient Social History Marrital Status: single Employed/Student: retired Tobacco Use?: Yes Tobacco type used: Cigarettes Smoking Status: Current Everyday Smoker Use of E-Cig and/or Vaping dev: No Substance use?: Yes Substance type: Nicotine Substance frequency: Daily Alcohol Use?: No Pt feels they are or have been: No Current Status status: No status: No Advance Directives: Yes Advance Directive Location: [place] Communicates: Verbally Primary Language: French Preferred Spoken Language: French Is interpretation needed?: No Sensory deficits: Vision impairment Implanted or Applied Medical D: Central venous access Past Medical History High Cholesterol, Hypertension Depression Review of Systems Constitutional: see HPI, fever, malaise, weakness Respiratory: cough, dyspnea on exertion Physical Exam Physical Exam Vital Signs Vital Signs - First Documented 03/21/21 18:13 Temp 36.2 Pulse 79 Resp 20 B/P (MAP) 128/60 (82) Pulse Ox 92 O2 Delivery Nasal Cannula O2 Flow Rate 5.00 Capillary Refill : Less Than 3 Seconds Height, Weight, BMI Height: 5'3.00" Weight: 180lbs. 0.0oz. [id number]; 30.74 BMI Method: General Appearance: No Apparent Distress, Chronically ill Eyes: Right Eye Normal Inspection, Right Eye PERRL HEENT: PERRL/EOMI, Normal ENT Inspection, Pharynx Normal, Moist Mucous Membranes Neck: Full Range of Motion, Normal Inspection, Non Tender Respiratory: Chest Non Tender, Lungs Clear, No Accessory Muscle Use, No Respiratory Distress, Decreased Breath Sounds Cardiovascular: Regular Rate, Rhythm, No Edema, No Gallop, No JVD, No Murmur, Normal Peripheral Pulses Gastrointestinal: Normal Bowel Sounds, No Organomegaly, No Pulsatile Mass, Non Tender, Soft Back: Normal Inspection, No CVA Tenderness, No Vertebral Tenderness Extremity: Normal Capillary Refill, Normal Inspection, Normal Range of Motion, Non Tender, No Calf Tenderness, No Pedal Edema Neurologic/Psychiatric: Alert, Oriented x3, No Motor/Sensory Deficits, 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 Assessment/Plan Admission Diagnosis Assessment: COVID-19 pneumonia Hypoxemia Smoker Hypertension Bacterial pneumonia Hyperlipidemia Depression Poor recall/cognitive deficit Plan: Antibiotics Oxygen Home meds Steroids Admission Status: Inpatient Order (span 2 midnights) Reason for Inpatient Admission: COVID-19 Diagnosis/Problems Diagnosis/Problems (1) Pneumonia due to COVID-19 virus Status: Acute (2) Elevated d-dimer Status: Acute (3) Respiratory failure Status: Acute Qualifiers: Chronicity: acute Respiratory failure complication: hypoxia Qualified Codes: J96.01 - Acute respiratory failure with hypoxia MANA LUNDBERG DO Mar 22, 2021 05:07
[2021-03-22] MEDS: CATHETER FLUSH 10 ML SYR IV SCH ×3 (06:55→22:46)
[2021-03-22] MEDS ORDERED: LOPERAMIDE 2 MG (IMODIUM) TABLET PO PRN (10:30)
[2021-03-22] MEDS ORDERED: DOCUSATE SODIUM 100 MG (COLACE) CAP PO PRN (10:30)
[2021-03-22] MEDS ORDERED: diphenhydrAMINE 25 MG TAB (BENADRYL) PO PRN (10:30)
[2021-03-22] MEDS ORDERED: CALCIUM CARBONATE 500 MG (TUMS) TAB.CHEW PO PRN (10:30)
[2021-03-22] MEDS ORDERED: ONDANSETRON 4 MG/2 ML (SDV) Z0FRAN IVP PRN (10:30)
[2021-03-22] MEDS ORDERED: ACETAMINOPHEN 325 MG TABLET PO PRN (11:00)
[2021-03-22] MEDS: AZITHROMYCIN INJECTION 500 MG in NS (IVPB) 250 ML IV SCH (11:24)
[2021-03-22] MEDS: CEFEPIME INJECTION 1,000 MG in WATER (STERILE) FOR INJECTION 10 ML IV SCH ×2 (11:24→17:50)
[2021-03-22] MEDS: ENOXAPARIN 40 MG/0.4 ML (LOVENOX) SYR SC SCH (11:24)
--- NOTE | 2021-03-22 13:54 | Pulmonary Consultation ---
History of Present Illness History of Present Illness Date Seen by Provider: Mar 22, 2021 Time Seen by Provider: 13:47 History of Present Illness 70 F with SOB, cough, FOSTER, tiredness. started March 05, getting worse, got dehydrated and decided to come to hospital. Can walk only 2 blocks, cough is mostly dry, No chest pain. Lost sense of taste and smell, Did not get vaccine, Smoker 1 PPD x 2y No Hx asthma, COPD, Tb worked in [employer];;, no occupational exposure SpO2 in 90's on 4 lpm but drops to 80's when walks to bathroom PMH RA for last on IV Erencia for 10, On MTX once a week, 5-6 years, mostly ankles and some in hands No Hx of PNA, no DM, + HTN on metoprolol No CAD, +HDL on statin Family Hx - Allergic to Latex-rash, morphine throats closes up Allergies and Home Medications Allergies Coded Allergies: latex (Unverified Allergy, Unknown, 08/08/06) morphine (Unverified Allergy, Unknown, WATER BLISTERS, has rec Lortab in the past, 03/22/21) , PT THINKS IT IS DUE TO LATEX Home Medications Cholecalciferol (Vitamin D3) 25 Mcg Capsule, 25 MCG PO BID, (Reported) Escitalopram Oxalate 10 Mg Tablet, 10 MG PO DAILY, (Reported) Hydrochlorothiazide 25 Mg Tablet, 25 MG PO DAILY, (Reported) Hydrocodone/Acetaminophen 1 Each Tablet, 1 EA PO BID PRN for PAIN-MODERATE (5- 7), (Reported) Losartan Potassium 50 Mg Tablet, 25 MG PO HS, (Reported) LAST FILLED 10-25-2020 #45/90 DAY SUPPLY TAKES OF A 50MG TAB Metoprolol Tartrate 50 Mg Tablet, 100 MG PO BID, (Reported) Brohman-3 Fatty Acids/Fish Oil 1 Each Capsule, 1 EACH PO BID, (Reported) Simvastatin 20 Mg Tablet, 20 MG PO HS, (Reported) Turmeric Root Extract 538 Mg Capsule, 538 MG PO HS, (Reported) Zinc Sulfate 50 Mg Tablet, 50 MG PO BID, (Reported) Past Medical/Social/Family Hx Patient Social History Tobacco Use?: Yes Tobacco type used: Cigarettes Smoking Status: Current Everyday Smoker Use of E-Cig and/or Vaping dev: No Substance use?: Yes Substance type: Nicotine Substance frequency: Daily Alcohol Use?: No Pt stated abuse/neglect: No Immunizations Up To Date Influenza Vaccine Up-to-Date: No; Not Current Current Status status: No status: No Advance Directives: Yes Advance Directive Location: [place] Communicates: Verbally Primary Language: Kazakh Preferred Spoken Language: Kazakh Is interpretation needed?: No Sensory deficits: Vision impairment Implanted or Applied Medical D: Central venous access Review of Systems Constitutional: weakness Respiratory: see HPI, cough Sepsis Event Evaluation Height, Weight, BMI Height: 5'3.00" Weight: 180lbs. 0.0oz. [id number]; 30.74 BMI Method: Exam Exam Patient acknowledged, consented, and participated in this virtual visit which was conducted using real time audio/video Vital Signs Date Time Temp Pulse Resp B/P (MAP) Pulse Ox O2 Delivery O2 Flow Rate FiO2 03/22/21 12:42 61 03/22/21 11:18 37.2 61 19 135/63 (87) 95 Nasal Cannula 4.50 03/22/21 07:42 36.8 69 20 128/70 (89) 94 Nasal Cannula 4.50 03/22/21 07:01 67 03/22/21 04:07 37.0 67 19 132/62 (85) 94 4.50 03/22/21 04:00 70 20 133/62 (85) 95 Nasal Cannula 4.50 03/22/21 03:35 70 15 136/71 (92) 94 Nasal Cannula 4.50 03/22/21 01:00 75 03/22/21 00:00 65 17 133/103 (113) 97 Nasal Cannula 4.50 03/21/21 23:08 Nasal Cannula 4.50 03/21/21 23:00 71 14 129/82 (98) 96 Nasal Cannula 4.50 03/21/21 22:55 80 25 147/75 (99) 92 Nasal Cannula 4.50 03/21/21 22:54 81 03/21/21 22:54 81 03/21/21 22:41 37.0 73 23 138/74 (95) 94 Nasal Cannula 4.50 03/21/21 22:38 76 15 138/74 (95) 93 Nasal Cannula 4.50 03/21/21 21:43 75 20 130/77 93 Nasal Cannula 2.00 03/21/21 21:30 75 130/77 (94) 93 03/21/21 20:45 76 129/56 (80) 92 03/21/21 19:45 73 119/68 (85) 93 03/21/21 19:00 77 129/62 (84) 95 03/21/21 18:13 36.2 79 20 128/60 (82) 92 Nasal Cannula 5.00 I & O 03/22/21 07:00 Intake Total 1500 ml Balance 1500 ml Height & Weight Height: 5'3.00" Weight: 180lbs. 0.0oz. 81.220681zn; 30.74 BMI Method: General Appearance: Mild Distress HEENT: PERRL/EOMI Neck: Supple Respiratory: Decreased Breath Sounds, Respiratory Distress Cardiovascular: Regular Rate, Rhythm, No Edema Capillary Refill: Less Than 3 Seconds Extremity: Normal Capillary Refill Neurologic/Psychiatric: Alert, Oriented x3 Skin: Warm/Dry Results Lab Laboratory Tests 03/21/21 18:40 03/22/21 03:30 Assessment/Plan Assessment/Plan COVID PNA, will continue present Rx, azithromycin, Cefepime, Lovenox, IV Decad delmis, Closely watch oxygen needs as has multifocal opacities on CT chest Time spent with patient (mins): 25 GLORIA REGAN MD Mar 22, 2021 13:54
[2021-03-22] MEDS ORDERED: OMEG-109 PO (15:16)
[2021-03-22] MEDS: HYDROcodone/APAP 5 MG/325 MG (LORTAB) TAB PO PRN ×2 (15:16→22:54)
[2021-03-22] MEDS ORDERED: HYDR25TA4 PO (15:16)
[2021-03-22] MEDS ORDERED: LOSA50TA63 PO (15:16)
[2021-03-22] MEDS ORDERED: SIMV20TA26 PO (15:16)
[2021-03-22] MEDS ORDERED: METO50TA15 PO (15:16)
[2021-03-22] MEDS ORDERED: HYDR-3820 PO (15:16)
[2021-03-22] MEDS ORDERED: ESCI-2 PO (15:16)
[2021-03-22] MEDS ORDERED: CHOL10007 PO (15:17)
[2021-03-22] MEDS ORDERED: TURM538C PO (15:17)
[2021-03-22] MEDS ORDERED: ZINC220T3 PO (15:17)
[2021-03-22] MEDS: SENNA W/DOCUSATE (SENOKOT S) TABLET PO SCH (20:55)
[2021-03-23] MEDS: CEFEPIME INJECTION 1,000 MG in WATER (STERILE) FOR INJECTION 10 ML IV SCH ×4 (00:59→17:45)
--- NOTE | 2021-03-23 05:28 | Progress Note - Hospitalist ---
Subjective HPI/CC On Admission Date Seen by Provider: Mar 23, 2021 Time Seen by Provider: 11:00 CC: SOB from Covid-19 Pneumonia HPI: This is a 70yoWF clinic pt of Dr. Costello in [facility] who is a current smoker who presented to the [facility] ER after being diagnosed with Covid on 03/03/21. She presented with fever and SOB with wheezing found to have hypoxemia and evidence of covid pneumonia on imaging scan so the plan was to admit to cardiac stepdown and initiate Covid-19 protocol. She denies any pain. She does reports she smoke and does not need nicotine patch. We will have pulmonary consulted and home meds will be reviewed. Antibiotics initiated along with Lovenox. Subjective/Events-last exam Pt doing a lot better Changing metoprolol XL to 25 twice a day Eye drops will also be started No major issues PT and OT will be ordered Remains on 4 liters of O2 and she feels better Review of Systems General: Fatigue, Malaise Pulmonary: Dyspnea, Cough Focused Exam Lactate Level 03/21/21 18:40: Lactic Acid Level 1.47 Objective Exam Vital Signs Vital Signs Date Time Temp Pulse Resp B/P (MAP) Pulse Ox O2 Delivery O2 Flow Rate FiO2 03/23/21 19:45 37.1 68 26 147/75 (99) 92 03/23/21 16:30 Nasal Cannula 4.00 Capillary Refill : Less Than 3 Seconds General Appearance: No Apparent Distress, WD/WN, Chronically ill Respiratory: Chest Non Tender, No Accessory Muscle Use, No Respiratory Distre ss, Crackles, Decreased Breath Sounds Cardiovascular: Regular Rate, Rhythm, No Edema, No Gallop, No JVD, No Murmur, Normal Peripheral Pulses Neurologic/Psychiatric: Alert, Oriented x3, Depressed Affect Results/Procedures Lab Laboratory Tests 03/23/21 05:58 Patient resulted labs reviewed. Assessment/Plan Assessment and Plan Assess & Plan/Chief Complaint Assessment: COVID-19 pneumonia Hypoxemia Smoker Hypertension Bacterial pneumonia Hyperlipidemia Depression Poor recall/cognitive deficit Plan: Antibiotics Oxygen Home meds Steroids 03/23/21: Transfer to 4th floor Monitor closely PT OT Diagnosis/Problems Diagnosis/Problems (1) Pneumonia due to COVID-19 virus Status: Acute (2) Elevated d-dimer Status: Acute (3) Respiratory failure Status: Acute Qualifiers: Chronicity: acute Respiratory failure complication: hypoxia Qualified Codes: J96.01 - Acute respiratory failure with hypoxia LOUIS PENA DO Mar 23, 2021 05:28
[2021-03-23] MEDS: CATHETER FLUSH 10 ML SYR IV SCH ×3 (06:04→22:01)
[2021-03-23 06:18] LABS: BASOPHILS % (AUTO) 0 % (0-10); EOSINOPHILS % (AUTO) 0 % (0-10); HEMATOCRIT 33 % (35-52); HEMOGLOBIN 10.5 g/dL (11.5-16.0); LYMPHOCYTES # (AUTO) 1.6 10^3/uL (1.0-4.0); LYMPHOCYTES % (AUTO) 23 % (12-44); MEAN CORPUSCULAR HEMOGLOBIN 29 pg (25-34); MEAN CORPUSCULAR HGB CONC 32 g/dL (32-36); MEAN CORPUSCULAR VOLUME 90 fL (80-99); MEAN PLATELET VOLUME 10.1 fL (9.0-12.2); MONOCYTES # (AUTO) 0.7 10^3/uL (0.0-1.0); MONOCYTES % (AUTO) 9 % (0-12); NEUTROPHILS # (AUTO) 4.8 10^3/uL (1.8-7.8); NEUTROPHILS % (AUTO) 68 % (42-75); PLATELET COUNT 363 10^3/uL (130-400); WHITE BLOOD COUNT 7.1 10^3/uL (4.3-11.0)
[2021-03-23 06:38] LABS: SMEAR SCAN COMMENT YES
[2021-03-23 06:39] LABS: POTASSIUM 3.4 MMOL/L (3.6-5.0)
[2021-03-23 06:41] LABS: CALCIUM 8.3 MG/DL (8.5-10.1)
[2021-03-23 06:42] LABS: TOTAL PROTEIN 5.8 GM/DL (6.4-8.2)
[2021-03-23 06:44] LABS: BILIRUBIN,TOTAL 0.5 MG/DL (0.1-1.0)
[2021-03-23 06:45] LABS: CREATININE SERUM 0.78 MG/DL (0.60-1.30)
[2021-03-23] MEDS: dexAMETHasone 6 MG TAB (DECADRON) PO SCH (07:06)
--- NOTE | 2021-03-23 07:49 | Diagnostic Imaging Report ---
INDICATION: Pneumonia. COMPARISON: 03/21/2021 FINDINGS: There is patchy minimal bibasilar subsegmental atelectasis and/or pneumonitis. There is no pneumothorax. Mediastinum is unremarkable. Infusaport catheter overlies the right hemithorax. IMPRESSION: Patchy bibasilar subsegmental atelectasis and/or pneumonitis. There is questionable trace left pleural effusion. Dictated by: Dictated on workstation # [id number]
[2021-03-23] MEDS: OMEGA 3 (FISH OIL) 1000 MG CAP PO SCH ×2 (08:49→20:18)
[2021-03-23] MEDS: VITAMIN D3 25 MCG (1,000 UNITS) TABLET PO SCH ×2 (08:49→20:17)
[2021-03-23] MEDS: meTOprolol TARTRATE 50 MG (LOPRESSOR) TAB PO SCH ×2 (08:49→20:18)
[2021-03-23] MEDS: AZITHROMYCIN INJECTION 500 MG in NS (IVPB) 250 ML IV SCH (09:05)
[2021-03-23] MEDS: SENNA W/DOCUSATE (SENOKOT S) TABLET PO SCH ×2 (09:13→20:17)
[2021-03-23] MEDS: ENOXAPARIN 40 MG/0.4 ML (LOVENOX) SYR SC SCH (11:05)
[2021-03-23] MEDS ORDERED: ARTIFICAL TEARS 0.4 ML UNIT DOSE (REFRESH PLUS) OU PRN (11:30)
[2021-03-23] MEDS: DICLOFENAC 1% GEL 100 GM (VOLTAREN) TUBE TOP SCH ×3 (13:51→20:18)
--- NOTE | 2021-03-23 13:54 | Physical Therapy Evaluation ---
PT Evaluation-General Medical Diagnosis Admission Date Mar 21, 2021 at 22:28 Medical Diagnosis: Covid pneumonia/hypoxia Onset Date: Mar 21, 2021 Therapy Diagnosis Therapy Diagnosis: debility/weakness Height/Weight Height (Feet): 5 Height (Inches): 3.00 Weight (Pounds): 180 Weight (Ounces): 0.0 Precautions Precautions/Isolations: Airborne Isolation Referral Physician: Toño Reason for Referral: Evaluation/Treatment Medical History Pertinent Medical History: Rheumatoid Arthritis, Smoking Current History ER secondary to SOA, confusion, chills, nausea, UTI (patient reports she was diagnosed with Covid 03/05/21) Reviewed History: Yes Social History Home: Single Level Current Living Status: Other Family Entry Into Home: Ramp Prior Prior Level of Function SCALE: Activities may be completed with or without assistive devices. 0-Duwggzwfwb-caubaby completes the activity by him/herself with no assistance from a helper. 5-Set-up or Clean-up Assistance-helper sets up or cleans up; patient completes activity. [place] assists only prior to or following the activity. 4-Supervision or Touching Assistance-helper provides verbal cues and/or touchi ng/steadying and/or contact guard assistance as patient completes activity. Assistance may be provided throughout the activity or intermittently. 3-Partial/Moderate Assistance-helper does LESS THAN HALF the effort. [place] lifts, holds or supports trunk or limbs, but provides less than half the effort. 2-Substantial/Maximal Assistance-helper does MORE THAN HALF the effort. [place] lifts or holds trunk or limbs and provides more than half the effort. 8-Adfscjqmt-xvnvif does ALL the effort. Patient does none of the effort to complete the activity. Or, the assistance of 2 or more helpers is required for the patient to complete the activity. If activity was not attempted, code reason: 7-Patient Refused. 9-Not Applicable-not attempted and the patient did not perform the activity before the current illness, exacerbation or injury. 10-Not Attempted due to Environmental Limitations-(lack of equipment, weather restraints, etc.). 88-Not Attempted due to Medical Conditions or Safety Concerns. Bed Mobility: 6 Transfers (B,C,W/C): 6 Gait: 6 Stairs: 6 Indoor Mobility (Ambulation): Independent Stairs: Independent Prior Devices Use: None PT Evaluation-Current Subjective Patient agrees to PT. Objective Patient Orientation: Normal For Age Attachments: Oxygen (4L) ROM/Strength ROM Lower Extremities bilateral LE WFL Strength Lower Extremities 4/5 grossly bilateral LE Integumentary/Posture Bowel Incontinence: No Bladder Incontinence: No Posture WFL Neuromuscular (Tone, Coordination, Reflexes) grossly intact Sensory Vision: Wears Glasses Hearing: Functional Transfers Roll Left to Right (QC): 6 Lying to Sitting/Side of Bed(Q: 6 Sit to Stand (QC): 6 Chair/Zqp-uv-Bcoax Xfer(QC): 6 Toilet Transfer (QC): 6 Gait Does the Patient Walk?: Yes Mode of Locomotion: Walk Anticipated Mode of Locomotion: Walk Walk 10 feet (QC): 6 Walk 50 ft with 2 Turns(QC): 6 Distance: 50' Gait Assistive Device: None Comments/Gait Description safe and functional with no deviation Balance Sitting Static: Normal Sitting Dynamic: Normal Standing Static: Normal Standing Dynamic: Normal Picking up an Object (QC): 6 Treatment Deep breathing techniques demonstrated and initiated with patient performing 5 reps each of seated trunk rotation with arm rest grab and standing bilateral UE flexion/deep breath then exhale. Assessment/Needs 70 y.o. female, will be seen short term to address deep breathing exercises in seated and standing position. Patient is currently at independent [employer] with gross motor skills. Rehab Potential: Fair PT Short Term Goals Short Term Goals Time Frame: Mar 24, 2021 Roll Left & Right: 6 Sit to lyin Lying to sitting on side of be: 6 Sit to stand: 6 Chair/ckw-rv-cgcan transfer: 6 Toilet transfer: 6 Walk 10 feet: 6 Walk 50 feet with two turns: 6 compliance with deep breathing exercises in standing and seated position. PT Plan Problem List Problem List: Other Treatment/Plan Treatment Plan: Continue Plan of Care Treatment Plan: Education Treatment Duration: Mar 24, 2021 Frequency: 2 times per week Estimated Hrs Per Day: .25 hour per day Patient and/or Family Agrees t: Yes Time/GCodes Time In: 1330 Time Out: 1344 Total Billed Treatment Time: 14 Total Billed Treatment 1 visit EVModC 14 min HERNAN BOGGS PT Mar 23, 2021 13:54
--- NOTE | 2021-03-23 14:36 | Occupational Therapy Eval ---
OT Evaluation-General/PLF Medical Diagnosis Admission Date Mar 21, 2021 at 22:28 Medical Diagnosis: Covid pneumonia/hypoxia Onset Date: Mar 21, 2021 Therapy Diagnosis Therapy Diagnosis: decreased activity tolerance Height/Weight Height (Feet): 5 Height (Inches): 3.00 Weight (Pounds): 180 Weight (Ounces): 0.0 Precautions Precautions/Isolations: Airborne Isolation Referral Physician: Toño Ortiz Reason: Evaluation/Treatment Medical History Pertinent Medical History: HTN, Rheumatoid Arthritis, Smoking Social History Home: Single Level Current Living Status: Other Family Entry Into Home: [facility] ADL-Prior Level of Function SCALE: Activities may be completed with or without assistive devices. 6-Rprutxefvx-slyzbzx completes the activity by him/herself with no assistance from a helper. 5-Set-up or Clean-up Assistance-helper sets up or cleans up; patient completes activity. [place] assists only prior to or following the activity. 4-Supervision or Touching Assistance-helper provides verbal cues and/or touching/steadying and/or contact guard assistance as patient completes activity. Assistance may be provided throughout the activity or intermittently. 3-Partial/Moderate Assistance-helper does LESS THAN HALF the effort. [place] lifts, holds or supports trunk or limbs, but provides less than half the effort. 2-Substantial/Maximal Assistance-helper does MORE THAN HALF the effort. [place] lifts or holds trunk or limbs and provides more than half the effort. 3-Clesruwrk-lcboza does ALL the effort. Patient does none of the effort to complete the activity. Or, the assistance of 2 or more helpers is required for the patient to complete the activity. If activity was not attempted, code reason: 7-Patient Refused. 9-Not Applicable-not attempted and the patient did not perform the activity before the current illness, exacerbation or injury. 10-Not Attempted due to Environmental Limitations-(lack of equipment, weather restraints, etc.). 88-Not Attempted due to Medical Conditions or Safety Concerns. ADL PLOF Comments Pt reports IND with ADLs and functional mobility at PLOF, no AD/AE Self Care: Independent Functional Cognition: Independent OT Current Status Subjective Pt laying in bed, agreeable to OT evaluation and tx. Pt states she feels like she is at her PLOF and has no concerns with her ability to complete ADLs and functional mobility at discharge. Mental Status/Objective Patient Orientation: Normal For Age Attachments: Oxygen Current Upper Extremity ROM WFL, BUE shoulder flexion to approx 150 degrees Upper Extremity Coordination WFL Upper Extremity Sensation WFL Upper Extremity Strength grossly 4/5 ADL-Treatment Eating (QC): 6 (IND with lunch) Oral Hygiene (QC): 6 (based on pt report and clincial judgement) Shower/Bathe Self (QC): 7 Upper Body Dressing (QC): 6 (based on pt report and clincial judgement) Toileting Hygiene (QC): 6 (Per pt report, able to manage clothing and perform hygiene.) Other Treatments Pt laying in bed, agreeable to OT tx. OT educated pt on purpose and benefit of OT, she verbalized understanding. Pt provided information about PLOF and home set up, and participated in UE screen. Pt declines OOB activity at this time due to fatigue. She indicates she has been up in her room independently, per PT evaluation pt independent 50' with functional mobility, no AD. Pt indicates she has no concerns with her ability to complete ADLs upon discharge, she has ate lunch independently and has no difficulties toileting. OT educated pt on UE exercises in order to increase BUE strength, activity tolerance, and pulmonary function. Pt completed x10 reps each of the following: shoulder flexion, elbow flexion, elbow extension and finger flexion/extension. OT instructed pt to perform exercises throughout the day, increasing reps as tolerated, she verbalized understanding. Post tx, pt laying in bed, call light in reach and all needs met. Education OT Patient Education: Correct positioning, Exercise program, Home exercise program, Modified ADL techniques, Progress toward Goal/Update tx plan, Purpose of tx/functional activities, Rehab process Teaching Recipient: Patient Teaching Methods: Discussion Response to Teaching: Verbalize Understanding OT Prison Goals Cash Management Officer Goals 1=Demonstrate adherence to instructed precautions during ADL tasks. 2=Patient will verbalize/demonstrate understanding of assistive devices/m odifications for ADL. 3=Patient will improve strength/tolerance for activity to enable patient to perform ADL's. OT Education/Plan Problem List/Assessment Assessment: No Skilled OT Needs ID'd No skilled OT services indicated at this time, as pt is independent with ADLs and functional mobility, and is at her PLOF. D/C from OT Discharge Recommendations Plan/Recommendations: Discharge/Goals Met Treatment Plan/Plan of Care Patient would benefit from OT for education, treatment and training to promote independence in ADL's, mobility, safety and/or upper extremity function for ADL's. Plan of Care: ADL Retraining, Functional Mobility, UE Funct Exercise/Act Treatment Duration: Mar 23, 2021 Frequency: 1 time per week (eval only) Rehab Potential: Fair Time/GCodes Start Time: 14:15 Stop Time: 14:25 Total Time Billed (hr/min): 10 Billed Treatment Time 1, DAJUAN ALLEN OT Mar 23, 2021 14:36
[2021-03-23] MEDS: LOSARTAN 50 MG (COZAAR) TAB PO SCH (20:18)
[2021-03-23] MEDS: ALPRAZolam 0.25 MG (XANAX) TAB PO PRN (20:18)
[2021-03-23] MEDS: MELATONIN 3 MG TABLET PO PRN (20:18)
[2021-03-23] MEDS: SIMvastatin 20 MG (ZOCOR) TAB PO SCH (20:18)
[2021-03-24] MEDS: CATHETER FLUSH 10 ML SYR IV SCH ×3 (05:41→20:53)
[2021-03-24] MEDS: CEFEPIME INJECTION 1,000 MG in WATER (STERILE) FOR INJECTION 10 ML IV SCH ×2 (05:42→05:50)
[2021-03-24] MEDS: dexAMETHasone 6 MG TAB (DECADRON) PO SCH (05:42)
[2021-03-24 06:22] LABS: BASOPHILS % (AUTO) 0 % (0-10); EOSINOPHILS % (AUTO) 0 % (0-10); HEMATOCRIT 36 % (35-52); HEMOGLOBIN 11.5 g/dL (11.5-16.0); LYMPHOCYTES # (AUTO) 1.5 10^3/uL (1.0-4.0); LYMPHOCYTES % (AUTO) 23 % (12-44); MEAN CORPUSCULAR HEMOGLOBIN 29 pg (25-34); MEAN CORPUSCULAR HGB CONC 32 g/dL (32-36); MEAN CORPUSCULAR VOLUME 93 fL (80-99); MEAN PLATELET VOLUME 10.1 fL (9.0-12.2); MONOCYTES # (AUTO) 0.7 10^3/uL (0.0-1.0); MONOCYTES % (AUTO) 10 % (0-12); NEUTROPHILS # (AUTO) 4.4 10^3/uL (1.8-7.8); NEUTROPHILS % (AUTO) 67 % (42-75); PLATELET COUNT 409 10^3/uL (130-400); WHITE BLOOD COUNT 6.7 10^3/uL (4.3-11.0)
[2021-03-24 06:36] LABS: ALBUMIN 3.1 GM/DL (3.2-4.5); POTASSIUM 3.9 MMOL/L (3.6-5.0)
[2021-03-24 06:37] LABS: CALCIUM 8.7 MG/DL (8.5-10.1)
[2021-03-24 06:38] LABS: TOTAL PROTEIN 6.3 GM/DL (6.4-8.2)
[2021-03-24 06:40] LABS: BILIRUBIN,TOTAL 0.5 MG/DL (0.1-1.0)
[2021-03-24 06:42] LABS: CREATININE SERUM 0.88 MG/DL (0.60-1.30)
[2021-03-24] MEDS: OMEGA 3 (FISH OIL) 1000 MG CAP PO SCH ×2 (08:09→20:53)
[2021-03-24] MEDS: HYDROcodone/APAP 5 MG/325 MG (LORTAB) TAB PO PRN ×2 (08:09→20:54)
[2021-03-24] MEDS: VITAMIN D3 25 MCG (1,000 UNITS) TABLET PO SCH ×2 (08:09→20:51)
[2021-03-24] MEDS: SENNA W/DOCUSATE (SENOKOT S) TABLET PO SCH ×2 (08:10→20:53)
[2021-03-24] MEDS: meTOprolol TARTRATE 50 MG (LOPRESSOR) TAB PO SCH ×2 (08:10→20:41)
[2021-03-24] MEDS: AZITHROMYCIN INJECTION 500 MG in NS (IVPB) 250 ML IV SCH (08:28)
[2021-03-24] MEDS: DICLOFENAC 1% GEL 100 GM (VOLTAREN) TUBE TOP SCH ×4 (09:13→20:53)
--- NOTE | 2021-03-24 09:44 | Tele-ICU Progress Note ---
Subjective Date Seen by a Provider: Mar 24, 2021 Time Seen by a Provider: 09:00 Subjective/Events-last exam Patient acknowledged, consented, and participated in this virtual visit which was conducted using real time audio/video. Thank you for asking us to see this patient for respiratory insufficiency and distress due to Covid pna. Pt feels 100% better HPC: Recent events: Feels much better overnight. PMH:RA htn HL SH: smoking history: Yes. FH: Non-contributory ROS: feels better PE: VSS O2 sat 97% on 5 LPM NC. HEENT: No obvious masses, adenopathy or JVD. Chest: clear to auscultation. CV: RRR S1 S2 No murmur or added sounds. Abd: Non-tender. Bowel sounds . : Unremarkable. Peterson . INTEGRITY CONSULTANT/psychiatric: Alert and oriented, grossly intact. No obvious focal findings. Extremities: No edema. Capillary refill < 3 seconds. Skin: unremarkable. Results: Elevated BUN Decreased Albumin. CBC nl. A/P: Respiratory insufficiency/distress: subjectively improved but still high O2 needs. Available chart/ vitals / labs / Images reviewed. Respiratory: Continue present management with NC Monitor for increasing oxygenation needs and/or need for ICU transfer. Critical Care: critically ill patient. Asked RN to reach out to eICU if any questions or concerns later. Time spent with patient/coordination of care (mins): 30 Sepsis Event Evaluation Sepsis Stage: Ruled Out Height, Weight, BMI Height: 5'3.00" Weight: 180lbs. 0.0oz. 81.782876wx; 30.74 BMI Method: Focused Exam Sepsis Stage: Ruled Out Lactate Level 03/21/21 18:40: Lactic Acid Level 1.47 Exam Exam Patient acknowledged, consented, and participated in this virtual visit which was conducted using real time audio/video Vital Signs Date Time Temp Pulse Resp B/P (MAP) Pulse Ox O2 Delivery O2 Flow Rate FiO2 03/24/21 07:33 37.2 55 20 171/89 (116) 94 Nasal Cannula 5.00 03/24/21 04:00 37.1 50 22 173/79 (110) 96 Nasal Cannula 5.00 03/23/21 23:33 36.6 49 18 149/68 (95) 94 Nasal Cannula 4.00 03/23/21 21:00 93 Nasal Cannula 5.00 03/23/21 19:45 37.1 68 26 147/75 (99) 92 03/23/21 19:00 60 03/23/21 16:30 36.2 20 158/71 (100) 96 Nasal Cannula 4.00 03/23/21 12:41 70 03/23/21 11:13 37.2 78 18 166/91 (116) 95 Nasal Cannula 4.00 l I & O 03/24/21 07:00 Intake Total 950 ml Balance 950 ml Height & Weight Height: 5'3.00" Weight: 180lbs. 0.0oz. 81.031682hd; 30.74 BMI Method: General Appearance: No Apparent Distress, WD/WN, Chronically ill HEENT: PERRL/EOMI, Normal ENT Inspection, Pharynx Normal, Moist Mucous Membranes Neck: Full Range of Motion, Normal Inspection, Non Tender Respiratory: Chest Non Tender, No Accessory Muscle Use, No Respiratory Distress, Crackles, Decreased Breath Sounds Cardiovascular: Regular Rate, Rhythm, No Edema, No Gallop, No JVD, No Murmur, Normal Peripheral Pulses Capillary Refill: Less Than 3 Seconds Extremity: Normal Capillary Refill, Normal Inspection, Normal Range of Motion, Non Tender, No Calf Tenderness, No Pedal Edema Neurologic/Psychiatric: Alert, Oriented x3, Depressed Affect Skin: Normal Color, Warm/Dry Lymphatic: No Adenopathy Results Lab Laboratory Tests 03/23/21 05:58 03/24/21 06:00 Assessment/Plan Assessment/Plan See free text. Critical Care: Critically Ill Patient Time spent on discussion(mins): 0 Diagnosis/Problems Diagnosis/Problems (1) Respiratory failure Status: Acute Qualifiers: Qualified Codes: J96.01 - Acute respiratory failure with hypoxia (2) Pneumonia due to COVID-19 virus Status: Acute SHERIF PIERRE MD Mar 24, 2021 09:44
--- NOTE | 2021-03-24 10:02 | Physical Therapy Daily Note ---
PT Daily Note-Current Subjective Patient agrees to PT. Patient states she hope to go home today. Mental Status Patient Orientation: Normal For Age Attachments: Oxygen Transfers SCALE: Activities may be completed with or without assistive devices. 8-Ylpcisrqbw-bqfchoa completes the activity by him/herself with no assistance from a helper. 5-Set-up or Clean-up Assistance-helper sets up or cleans up; patient completes activity. Holden assists only prior to or following the activity. 4-Supervision or Touching Assistance-helper provides verbal cues and/or touching/steadying and/or contact guard assistance as patient completes activity. Assistance may be provided throughout the activity or intermittently. 3-Partial/Moderate Assistance-helper does LESS THAN HALF the effort. Holden lifts, holds or supports trunk or limbs, but provides less than half the effort. 2-Substantial/Maximal Assistance-helper does MORE THAN HALF the effort. Holden lifts or holds trunk or limbs and provides more than half the effort. 3-Wbncnkxtc-rkyibv does ALL the effort. Patient does none of the effort to complete the activity. Or, the assistance of 2 or more helpers is required for the patient to complete the activity. If activity was not attempted, code reason: 7-Patient Refused. 9-Not Applicable-not attempted and the patient did not perform the activity before the current illness, exacerbation or injury. 10-Not Attempted due to Environmental Limitations-(lack of equipment, weather restraints, etc.). 88-Not Attempted due to Medical Conditions or Safety Concerns. Lying to Sitting/Side of Bed(Q: 6 Sit to Stand (QC): 6 Chair/Ydp-xp-Oxklj Xfer(QC): 6 Gait Training Does the Patient Walk?: Yes Distance: 150' in room Walk 10 feet (QC): 6 Walk 50 ft with 2 Turns(QC): 6 Walk 150 ft (QC): 6 Gait Assistive Device: None safe and functional with no deviation/able to negotiate O2 tubing without difficulty Treatments Review deep breathing exercises with patient reporting she performs this throughout the day. Assessment Patient compliant with exercise program and is at independent PLOF with all gross motor skills safely. PT to dismiss patient from services. RN notified. PT Short Term Goals Short Term Goals Time Frame: Mar 24, 2021 Roll Left & Right: 6 Sit to lyin Lying to sitting on side of be: 6 Sit to stand: 6 Chair/xsh-kr-kcfxy transfer: 6 Toilet transfer: 6 Walk 10 feet: 6 Walk 50 feet with two turns: 6 PT Plan Treatment/Plan Treatment Plan: Continue Plan of Care Treatment Plan: Education Treatment Duration: Mar 24, 2021 Frequency: 2 times per week Estimated Hrs Per Day: .25 hour per day Patient and/or Family Agrees t: Yes Time/GCodes Time In: 920 Time Out: 932 Total Billed Treatment Time: 12 Total Billed Treatment 1 visit FA 12 min HERNAN BOGGS PT Mar 24, 2021 10:02
[2021-03-24] MEDS: ENOXAPARIN 40 MG/0.4 ML (LOVENOX) SYR SC SCH (11:44)
--- NOTE | 2021-03-24 13:26 | Progress Note - Hospitalist ---
Subjective HPI/CC On Admission Date Seen by Provider: Mar 24, 2021 Time Seen by Provider: 10:05 CC: SOB from Covid-19 Pneumonia HPI: This is a 70yoWF clinic pt of Dr. Costello in [facility] who is a current smoker who presented to the [facility] ER after being diagnosed with Covid on 03/03/21. She presented with fever and SOB with wheezing found to have hypoxemia and evidence of covid pneumonia on imaging scan so the plan was to admit to cardiac stepdown and initiate Covid-19 protocol. She denies any pain. She does reports she smoke and does not need nicotine patch. We will have pulmonary consulted and home meds will be reviewed. Antibiotics initiated along with Lovenox. Subjective/Events-last exam She is feeling much better today. She still feels a bit short of breath. She has been up and walking. She is about to take a shower. She wants to go home. Focused Exam Lactate Level 03/21/21 18:40: Lactic Acid Level 1.47 Objective Exam Vital Signs Vital Signs Date Time Temp Pulse Resp B/P (MAP) Pulse Ox O2 Delivery O2 Flow Rate FiO2 03/24/21 11:12 36.0 47 20 129/76 (93) 96 Nasal Cannula 5.00 Capillary Refill : Less Than 3 Seconds General Appearance: No Apparent Distress, Obese Respiratory: Lungs Clear, Normal Breath Sounds, No Respiratory Distress Cardiovascular: Regular Rate, Rhythm, No Edema, No Murmur Gastrointestinal: Normal Bowel Sounds, Non Tender, Soft Extremity: Normal Inspection, Non Tender, No Pedal Edema Neurologic/Psychiatric: Alert, Oriented x3, No Motor/Sensory Deficits, Normal Mood/Affect Skin: Normal Color, Warm/Dry Results/Procedures Lab Laboratory Tests 03/24/21 06:00 Patient resulted labs reviewed. Imaging: Reviewed Imaging Report Assessment/Plan Assessment and Plan Assess & Plan/Chief Complaint Acute respiratory failure due to COVID-19 Diagnosed COVID+ 03/03/2021 Decadron Outside of window for remdesivir Procalcitonin normal Stop antibiotics Currently on 5 L nasal cannula Home oxygen evaluation tomorrow morning HTN HLD Depression Continue home meds Obesity Clinically significant, no acute management needs DVT prophylaxis: Lovenox Diagnosis/Problems Diagnosis/Problems (1) Acute respiratory failure due to COVID-19 Status: Acute (2) Pneumonia due to COVID-19 virus Status: Acute REJI,MARQUIS M MD Mar 24, 2021 13:26
[2021-03-24] MEDS: MELATONIN 3 MG TABLET PO PRN (20:51)
[2021-03-24] MEDS: ALPRAZolam 0.25 MG (XANAX) TAB PO PRN (20:51)
[2021-03-24] MEDS: SIMvastatin 20 MG (ZOCOR) TAB PO SCH (20:53)
[2021-03-24] MEDS: LOSARTAN 50 MG (COZAAR) TAB PO SCH (20:54)
[2021-03-25] MEDS ORDERED: hydrALAZINE (APESOLINE) 20 MG/ML VIAL IV PRN
[2021-03-25] MEDS: dexAMETHasone 6 MG TAB (DECADRON) PO SCH (06:21)
[2021-03-25] MEDS: CATHETER FLUSH 10 ML SYR IV SCH (06:21)
[2021-03-25] MEDS ORDERED: LOSARTAN 25 MG (COZAAR) TAB PO ONE (06:45)
[2021-03-25] MEDS ORDERED: LOSA50TA63 PO (08:18)
[2021-03-25] MEDS: OMEGA 3 (FISH OIL) 1000 MG CAP PO SCH (09:25)
[2021-03-25] MEDS: DICLOFENAC 1% GEL 100 GM (VOLTAREN) TUBE TOP SCH (09:25)
[2021-03-25] MEDS: SENNA W/DOCUSATE (SENOKOT S) TABLET PO SCH (09:25)
[2021-03-25] MEDS: VITAMIN D3 25 MCG (1,000 UNITS) TABLET PO SCH (09:26)
[2021-03-25] MEDS ORDERED: LOSARTAN 50 MG (COZAAR) TAB PO SCH (21:00)
== END 2021-03-25 12:15 | disposition home or self-care (01) | DRG 177 ==
LOC: EDUNIT# 18:07 → ER FS 18:09 → CSD 22:28 → 4TH 03-24 03:27
PROVIDERS: ADMIT Internal Medicine; ATTEND Internal Medicine
DX: U07.1 COVID-19 (principal); J12.82 Pneumonia due to coronavirus disease 2019; J96.01 Acute respiratory failure with hypoxia; J15.9 Unspecified bacterial pneumonia; F17.210 Nicotine dependence, cigarettes, uncomplicated; I10 Essential (primary) hypertension; F32.9 Major depressive disorder, single episode, unspecified; R41.89 Other symptoms and signs involving cognitive functions and awareness; E78.5 Hyperlipidemia, unspecified; E66.9 Obesity, unspecified; Z68.31 Body mass index [BMI] 31.0-31.9, adult; Z73.0 Burn-out; Z88.5 Allergy status to narcotic agent; Z91.040 Latex allergy status
CPT/HCPCS: 36415; 71045; 71275; 80053; 82805; 83605; 83880; 84145; 84484; 85025; 85379; 85610; 85730; 87040; 93005; 94761; 96374; 96375; 99291

== ENCOUNTER → 2021-04-21 | Outpatient (CLI) | payer MEDICARE, OTHER ==
[~2021-04-21] VITALS: Ht 165.1 cm; Wt 81.2 kg
[~2021-04-21] MED LIST changes: +CHOL10007 PO; +ESCI-2 PO; +GOLIMUMAB IV SCH; +HYDR-3820 PO; +HYDR25TA4 PO; +LOSA50TA63 PO; +METO50TA15 PO; +NS IV SCH; +OMEG-109 PO; +SIMV20TA26 PO; +TURM538C PO; +ZINC220T3 PO
[2021-04-21 09:40] VITALS: BP 144/72
[2021-04-21 09:55] LABS: BASOPHILS # (AUTO) 0.1 10^3/uL (0.0-0.1); BASOPHILS % (AUTO) 1 % (0-10); EOSINOPHILS # (AUTO) 0.2 10^3/uL (0.0-0.3); EOSINOPHILS % (AUTO) 3 % (0-10); HEMATOCRIT 35 % (35-52); LYMPHOCYTES # (AUTO) 2.3 10^3/uL (1.0-4.0); LYMPHOCYTES % (AUTO) 28 % (12-44); MEAN CORPUSCULAR HEMOGLOBIN 29 pg (25-34); MEAN CORPUSCULAR HGB CONC 31 g/dL (32-36); MEAN CORPUSCULAR VOLUME 92 fL (80-99); MEAN PLATELET VOLUME 10.3 fL (9.0-12.2); MONOCYTES # (AUTO) 0.7 10^3/uL (0.0-1.0); MONOCYTES % (AUTO) 8 % (0-12); NEUTROPHILS # (AUTO) 4.8 10^3/uL (1.8-7.8); NEUTROPHILS % (AUTO) 60 % (42-75); PLATELET COUNT 313 10^3/uL (130-400); WHITE BLOOD COUNT 8.1 10^3/uL (4.3-11.0)
[2021-04-21 10:14] LABS: ALBUMIN 3.6 GM/DL (3.2-4.5); BILIRUBIN,TOTAL 0.7 MG/DL (0.1-1.0); CALCIUM 9.6 MG/DL (8.5-10.1); CREATININE SERUM 0.73 MG/DL (0.60-1.30); POTASSIUM 3.3 MMOL/L (3.6-5.0); TOTAL PROTEIN 6.9 GM/DL (6.4-8.2)
== END ==
LOC: SDC 09:13
PROVIDERS: ATTEND Internal Medicine Rheumatology
DX: M05.79 Rheumatoid arthritis with rheumatoid factor of multiple sites without organ or systems involvement (principal)
CPT/HCPCS: 36415; 80053; 85025; 87040; 96365

== ENCOUNTER → 2021-05-30 | Outpatient (CLI) | payer MEDICARE, OTHER ==
[~2021-05-30] MED LIST changes: -GOLIMUMAB IV SCH; -NS IV SCH
--- NOTE | 2021-05-30 13:56 | Diagnostic Imaging Report ---
INDICATION: Right lower lobe lung nodule. TECHNIQUE: Serum blood glucose level at the time of injection is 109 mg/dL. Patient was administered 13.4 mCi F-18 FDG intravenously in the right hand and PET imaging was performed from the top of the skull to mid thighs. Noncontrast CT was also performed for attenuation correction and anatomic correlation. COMPARISON: No prior PET/CT studies available for comparison. Comparison is made with CT chest study from 03/21/2021. FINDINGS: There is symmetric activity throughout the brain. Soft tissues of the neck are unremarkable. There is no hypermetabolic mediastinal or hilar lymphadenopathy. No pulmonary parenchymal hypermetabolism is identified. Specifically, the nodule in the superior segment of the right lower lobe does not show FDG avidity. There are some residual airspace infiltrates in the left upper lobe with some nodularity along the major fissure on the left, similar to prior exam. This too is not hypermetabolic. The groundglass infiltrates noted on prior CT have improved. There is normal physiologic activity throughout the GI and tracts of the abdomen and pelvis. No suspicious hypermetabolism is identified. There is diverticulosis of the sigmoid colon. IMPRESSION: No suspicious hypermetabolic foci are identified. Specifically, the nodule in the right lower lobe does not demonstrate FDG avidity. Continued chest CT follow-up is recommended to confirm stability. Dictated by: Dictated on workstation # [id number]
== END ==
LOC: RAD 08:31
PROVIDERS: ATTEND Family Medicine
DX: R91.1 Solitary pulmonary nodule (principal)
CPT/HCPCS: 78815; A9552

== ENCOUNTER → 2021-06-16 | Outpatient (CLI) | payer MEDICARE, OTHER ==
[~2021-06-16] MED LIST changes: +GOLIMUMAB IV SCH; +NS IV SCH
[2021-06-16 09:35] VITALS: BP 139/91
[2021-06-16 10:39] LABS: BASOPHILS # (AUTO) 0.1 10^3/uL (0.0-0.1); BASOPHILS % (AUTO) 1 % (0-10); EOSINOPHILS # (AUTO) 0.2 10^3/uL (0.0-0.3); EOSINOPHILS % (AUTO) 2 % (0-10); HEMATOCRIT 37 % (35-52); HEMOGLOBIN 11.7 g/dL (11.5-16.0); LYMPHOCYTES # (AUTO) 2.4 10^3/uL (1.0-4.0); LYMPHOCYTES % (AUTO) 35 % (12-44); MEAN CORPUSCULAR HEMOGLOBIN 29 pg (25-34); MEAN CORPUSCULAR HGB CONC 32 g/dL (32-36); MEAN CORPUSCULAR VOLUME 90 fL (80-99); MEAN PLATELET VOLUME 10.4 fL (9.0-12.2); MONOCYTES # (AUTO) 0.5 10^3/uL (0.0-1.0); MONOCYTES % (AUTO) 7 % (0-12); NEUTROPHILS # (AUTO) 3.8 10^3/uL (1.8-7.8); NEUTROPHILS % (AUTO) 55 % (42-75); PLATELET COUNT 245 10^3/uL (130-400); WHITE BLOOD COUNT 6.9 10^3/uL (4.3-11.0)
[2021-06-16 10:56] LABS: ALBUMIN 3.9 GM/DL (3.2-4.5); BILIRUBIN,TOTAL 0.8 MG/DL (0.1-1.0); CALCIUM 9.3 MG/DL (8.5-10.1); CREATININE SERUM 0.79 MG/DL (0.60-1.30); POTASSIUM 3.5 MMOL/L (3.6-5.0); TOTAL PROTEIN 6.8 GM/DL (6.4-8.2)
== END ==
LOC: SDC 09:30
PROVIDERS: ATTEND Internal Medicine Rheumatology
DX: M05.79 Rheumatoid arthritis with rheumatoid factor of multiple sites without organ or systems involvement (principal)
CPT/HCPCS: 36415; 36591; 80053; 85025; 96365; 96523

== ENCOUNTER → 2021-08-11 | Outpatient (CLI) | payer MEDICARE, OTHER ==
[2021-08-11 10:19] LABS: BASOPHILS # (AUTO) 0.1 10^3/uL (0.0-0.1); BASOPHILS % (AUTO) 1 % (0-10); EOSINOPHILS # (AUTO) 0.2 10^3/uL (0.0-0.3); EOSINOPHILS % (AUTO) 3 % (0-10); HEMATOCRIT 39 % (35-52); HEMOGLOBIN 12.8 g/dL (11.5-16.0); LYMPHOCYTES % (AUTO) 31 % (12-44); MEAN CORPUSCULAR HEMOGLOBIN 29 pg (25-34); MEAN CORPUSCULAR HGB CONC 33 g/dL (32-36); MEAN CORPUSCULAR VOLUME 89 fL (80-99); MEAN PLATELET VOLUME 10.8 fL (9.0-12.2); MONOCYTES # (AUTO) 0.6 10^3/uL (0.0-1.0); MONOCYTES % (AUTO) 9 % (0-12); NEUTROPHILS # (AUTO) 3.7 10^3/uL (1.8-7.8); NEUTROPHILS % (AUTO) 57 % (42-75); PLATELET COUNT 228 10^3/uL (130-400); WHITE BLOOD COUNT 6.5 10^3/uL (4.3-11.0)
[2021-08-11 10:20] VITALS: BP 147/93
[2021-08-11 10:43] LABS: ALBUMIN 3.8 GM/DL (3.2-4.5); BILIRUBIN,DIRECT 0.3 MG/DL (0.0-0.3); BILIRUBIN,INDIRECT 0.4 MG/DL; BILIRUBIN,TOTAL 0.7 MG/DL (0.1-1.0); TOTAL PROTEIN 6.7 GM/DL (6.4-8.2)
== END ==
LOC: SDC 09:27
PROVIDERS: ATTEND Internal Medicine Rheumatology
DX: Z51.81 Encounter for therapeutic drug level monitoring (principal); M05.79 Rheumatoid arthritis with rheumatoid factor of multiple sites without organ or systems involvement
CPT/HCPCS: 36415; 80076; 85025; 96365

== ENCOUNTER → 2021-10-06 | Outpatient (CLI) | payer MEDICARE, OTHER ==
[2021-10-06 09:25] VITALS: BP 141/79
[2021-10-06 10:03] LABS: BASOPHILS # (AUTO) 0.1 10^3/uL (0.0-0.1); BASOPHILS % (AUTO) 1 % (0-10); EOSINOPHILS # (AUTO) 0.2 10^3/uL (0.0-0.3); EOSINOPHILS % (AUTO) 3 % (0-10); HEMATOCRIT 39 % (35-52); HEMOGLOBIN 12.7 g/dL (11.5-16.0); LYMPHOCYTES # (AUTO) 2.4 10^3/uL (1.0-4.0); LYMPHOCYTES % (AUTO) 30 % (12-44); MEAN CORPUSCULAR HEMOGLOBIN 29 pg (25-34); MEAN CORPUSCULAR HGB CONC 33 g/dL (32-36); MEAN CORPUSCULAR VOLUME 90 fL (80-99); MEAN PLATELET VOLUME 10.4 fL (9.0-12.2); MONOCYTES # (AUTO) 0.7 10^3/uL (0.0-1.0); MONOCYTES % (AUTO) 8 % (0-12); NEUTROPHILS # (AUTO) 4.8 10^3/uL (1.8-7.8); NEUTROPHILS % (AUTO) 59 % (42-75); PLATELET COUNT 223 10^3/uL (130-400); WHITE BLOOD COUNT 8.1 10^3/uL (4.3-11.0)
[2021-10-06 10:29] LABS: BILIRUBIN,DIRECT 0.4 MG/DL (0.0-0.3); BILIRUBIN,INDIRECT 0.8 MG/DL; BILIRUBIN,TOTAL 1.2 MG/DL (0.1-1.0); TOTAL PROTEIN 6.9 GM/DL (6.4-8.2)
== END ==
LOC: SDC 09:23
PROVIDERS: ATTEND Internal Medicine Rheumatology
DX: Z51.81 Encounter for therapeutic drug level monitoring (principal); M05.89 Other rheumatoid arthritis with rheumatoid factor of multiple sites
CPT/HCPCS: 36415; 80076; 85025; 96365

== ENCOUNTER → 2021-12-01 | Outpatient (CLI) | payer MEDICARE, OTHER ==
[2021-12-01 10:00] VITALS: BP 148/78
[2021-12-01 10:18] LABS: BASOPHILS # (AUTO) 0.1 10^3/uL (0.0-0.1); BASOPHILS % (AUTO) 1 % (0-10); EOSINOPHILS # (AUTO) 0.1 10^3/uL (0.0-0.3); EOSINOPHILS % (AUTO) 2 % (0-10); HEMATOCRIT 39 % (35-52); HEMOGLOBIN 12.5 g/dL (11.5-16.0); LYMPHOCYTES # (AUTO) 2.1 10^3/uL (1.0-4.0); LYMPHOCYTES % (AUTO) 28 % (12-44); MEAN CORPUSCULAR HEMOGLOBIN 29 pg (25-34); MEAN CORPUSCULAR HGB CONC 32 g/dL (32-36); MEAN CORPUSCULAR VOLUME 92 fL (80-99); MEAN PLATELET VOLUME 10.3 fL (9.0-12.2); MONOCYTES # (AUTO) 0.6 10^3/uL (0.0-1.0); MONOCYTES % (AUTO) 8 % (0-12); NEUTROPHILS # (AUTO) 4.5 10^3/uL (1.8-7.8); NEUTROPHILS % (AUTO) 61 % (42-75); PLATELET COUNT 247 10^3/uL (130-400); WHITE BLOOD COUNT 7.4 10^3/uL (4.3-11.0)
[2021-12-01 10:43] LABS: BILIRUBIN,DIRECT 0.3 MG/DL (0.0-0.3); BILIRUBIN,INDIRECT 0.6 MG/DL; BILIRUBIN,TOTAL 0.9 MG/DL (0.1-1.0); TOTAL PROTEIN 6.7 GM/DL (6.4-8.2)
== END ==
LOC: SDC 09:49
PROVIDERS: ATTEND Internal Medicine Rheumatology
DX: Z51.81 Encounter for therapeutic drug level monitoring (principal); M05.79 Rheumatoid arthritis with rheumatoid factor of multiple sites without organ or systems involvement
CPT/HCPCS: 36415; 80076; 85025; 96365

== ENCOUNTER → 2022-01-31 | Outpatient (CLI) | payer MEDICARE, OTHER ==
[~2022-01-31] VITALS: Ht 160 cm; Wt 89.0 kg
[2022-01-31 09:36] VITALS: BP 131/84
[2022-01-31 10:30] LABS: HEMATOCRIT 39 % (35-52); HEMOGLOBIN 12.6 g/dL (11.5-16.0); MEAN CORPUSCULAR HEMOGLOBIN 30 pg (25-34); MEAN CORPUSCULAR HGB CONC 32 g/dL (32-36); MEAN CORPUSCULAR VOLUME 92 fL (80-99); MEAN PLATELET VOLUME 10.9 fL (9.0-12.2); PLATELET COUNT 220 10^3/uL (130-400); WHITE BLOOD COUNT 6.1 10^3/uL (4.3-11.0)
[2022-01-31 10:52] LABS: ALBUMIN 3.7 GM/DL (3.2-4.5)
[2022-01-31 10:53] LABS: POTASSIUM 3.8 MMOL/L (3.6-5.0)
[2022-01-31 10:54] LABS: CALCIUM 8.9 MG/DL (8.5-10.1)
[2022-01-31 10:55] LABS: TOTAL PROTEIN 6.4 GM/DL (6.4-8.2)
[2022-01-31 10:57] LABS: BILIRUBIN,TOTAL 0.9 MG/DL (0.1-1.0)
[2022-01-31 10:59] LABS: CREATININE SERUM 0.85 MG/DL (0.60-1.30)
== END ==
LOC: SDC 09:21
PROVIDERS: ATTEND Internal Medicine Rheumatology
DX: Z51.81 Encounter for therapeutic drug level monitoring (principal); M05.79 Rheumatoid arthritis with rheumatoid factor of multiple sites without organ or systems involvement
CPT/HCPCS: 36415; 36591; 80053; 85027; 96374

== ENCOUNTER → 2022-03-08 | Outpatient (CLI) | payer MEDICARE, OTHER ==
[~2022-03-08] VITALS: Ht 162 cm; Wt 89.0 kg
[~2022-03-08] MED LIST changes: -GOLIMUMAB IV SCH; -NS IV SCH
== END | disposition home or self-care (01) ==
LOC: PREOP 05:33
PROVIDERS: ATTEND Surgery
DX: Z01.818 Encounter for other preprocedural examination (principal)

== ENCOUNTER 2022-03-14 11:59 | Day surgery (SDC) | payer MEDICARE, OTHER ==
[~2022-03-14] VITALS: Ht 160 cm; Wt 89.0 kg
[2022-03-14] VITALS (8 sets, daily range): BP systolic 142–162; BP diastolic 66–84
[2022-03-14] MEDS ORDERED: ceFAZolin 2 GM IV Premixed 50 ML IV ONE (12:15)
[2022-03-14] MEDS ORDERED: LACTATED RINGERS 1,000 ML IV PRN (12:15)
[2022-03-14] MEDS ORDERED: PROPOFOL INJECTION 50 ML IV ONE (12:45)
[2022-03-14] MEDS ORDERED: fentaNYL INJ 100 MCG/2 ML AMP ONE (12:45)
[2022-03-14] MEDS ORDERED: MIDAZOLAM 2 MG/2 ML (VERSED) VIAL ONE (12:45)
--- NOTE | 2022-03-14 12:51 | Progress Note-Pre Operative ---
Pre-Operative Progress Note H&P Reviewed The H&P was reviewed, patient examined and no changes noted. Time Seen by Provider: 12:49 Date H&P Reviewed: Mar 14, 2022 Time H&P Reviewed: 12:49 Pre-Operative Diagnosis: Venous insufficiency, Malfunctioning port PROSPER DUARTE DO Mar 14, 2022 12:51
--- NOTE | 2022-03-14 14:28 | Progress Note-Post Operative ---
Post-Operative Progess Note Surgeon (s)/Gray Tender (s) Surgeon PROSPER DUARTE DO Gray Tender: BAN Manjarrez Pre-Operative Diagnosis Venous insufficiency, Malfunctioning port Post-Operative Diagnosis same plus RA Procedure & Operative Findings Date of Procedure 03/14/22 Procedure Performed/Findings 1) John-cath placement 2) John-cath removal PROCEDURE: The patient was taken to the operating suite, was prepped and draped in the sterile fashion. A surgical pause was performed. Local anesthetic was infiltrated at the clavicle and along the tract to the right anterior chest, where more local was placed so the pocket could be created. Using an 18 gauge finder needle with negative inspiration the left subclavian vein was accessed on the first attempt and dark nonpulsatile blood was withdrawn. The wire was inserted and fluoroscopy assured proper placement. The needle was removed. The regular wire was inserted and fluoroscopy assured proper placement. The wire was then secured. A #11 blade scalpel was used to make an incision over the right chest and along guidewire. Cautery was used to dissect down to the pectoral fascia. A pocket was created with blunt dissection. The dilator sheath was then advanced over the wire under fluoroscopy and the dilator and wire were removed. The Groshong catheter was inserted through the sheath and the sheath was then removed. The Groshong wire was removed. The catheter was then tunneled to the right chest pocket. Fluoroscopy was used to cut to length and this was then attached to the port which was then placed within the pocket. The port was then accessed without difficulty. It was then flushed with saline and then heparin. The subcutaneous tissues were then reapproximated using 3-0 Vicryl. Finally the skin was closed with 4-0 undyed monocryl, 3 interrupted sutures. The areas were then washed and dried. Skin Affix was placed over incision. The insertion point of the neck Skin Affix was placed over the incision. INDICATIONS: The patient is a 71 year-old female who had a port previously placed. Unfortunately it is non-functioning and needs port removed. PROCEDURE: Local anesthetic was infiltrated to the area around the port. A number 15 blade scalpel was used to make an incision at site of previous incision and then dissected down to the port which was then grasped and then dissected around. The catheter was removed in its entirety and closed the tract with 3-0 Vicryl figure of eight suture. The port was then able to be dissected out of the pocket and elevated. The wound was then irrigated with copious amounts of irrigation. Hemostasis had been achieved. The subcutaneous tissues were then reapproximated using 3-0 Vicryl, 4 interrupted stitches. Skin was then closed using 4-0 undyed Monocryl in a running subcuticular fashion. The area was then washed and dried and Skin Affix placed over the incision. The patient tolerated the procedure well without complication and was taken to recovery room in stable condition. Anesthesia Type IV sedation by CATERING SALES MANAGER Estimated Blood Loss Estimated blood loss (mL): less than 5ml Specimens/Packing Specimens Removed port, not sent to pathology PROSPER DUARTE DO Mar 14, 2022 14:28
--- NOTE | 2022-03-14 14:29 | Discharge Inst-Surgical ---
Discharge Inst-Surgical Depart Medication/Instructions New, Converted or Re-Newed RX: Other (use home meds) Patient Instructions Follow up Appt: Make appointment for 1 week. [phone] Instructions: No strenuous activity. May shower in 24 hours, no tub bath or soaking. Use incentive spirometer at home as directed. No Smoking Skin/Wound Care: May remove bandages in am. You need to leave the Dermabond on incision it will fall off on it's own. Symptoms to Report: Appetite Changes, Extremity Discoloration, Numbness/Tingling, Swelling Increased, Bleeding Excessive, Eyesight Changes, Pain Increased, Urine Color Kirstin nge, Constipation(Persistent), Fever over 101 degree F, Pain/Pressure in chest, Urinating Difficulty, Cough Up/Vomit Blood, Heart Beat Irreg/Pounding, Pain/Pressure in jaw, Cramps in feet or legs, Lightheadedness, Pain/Pressure in shoulder, Diarrhea(Persistent), Memory Changes Suddenly, Questions/Concerns, Weight gain consecutive days, Dizziness/Fainting, Nausea/Vomiting, Shortness of Breath, Weight gain over 2 pounds If questions or concerns contact your physician Or seek help at emergency department. Activity Activity as Tolerated: Yes Activity Instructions: Avoid Stress to Incision Driving Instructions: No Driving/Refer to Dr. Hernandez Discharge Diet: No Restrictions Diet After 24 Hours: Clear Liquid if Nauseous If Any Problems/Questions/Issu: Contact Your Physician, Go to Emergency Room Skin/Wound Care Infection Signs and Symptoms: Increased Redness, Foul Odor of Wound, Increased Drainage, Skin Itchy or Has a Rash, Increased Swelling, Temperature Above 101 F Bathing Instructions: Shower Stitches/Meliton/Dermabond Dis: PROSPER Wiggins DO Mar 14, 2022 14:29
[2022-03-14] MEDS ORDERED: 0.9% SODIUM CHLORIDE PF INJ 10 ML VIAL IV ONE (14:45)
[2022-03-14] MEDS ORDERED: HEParin (CENTRAL IV FLUSH) 500 UNIT/5 ML SYR IV ONE (14:45)
[2022-03-14] MEDS ORDERED: LIDOCAINE/EPI 2% 1:100,00 (XYLOCAINE) 20 ML VIAL INJ ONE (14:45)
[2022-03-14] MEDS ORDERED: ONDANSETRON 4 MG/2 ML (SDV) Z0FRAN IVP PRN (14:45)
--- NOTE | 2022-03-14 14:46 | Anesthesia-General Post-Op ---
MAC Patient Condition Mental Status/LOC: Same as Preop Cardiovascular: Satisfactory Nausea/Vomiting: Absent Respiratory: Satisfactory Pain: Controlled Complications: Absent Post Op Complications Complications None Follow Up Care/Instructions Patient Instructions None needed. Anesthesiology Discharge Order Discharge Order Patient is doing well, no complaints, stable vital signs, no apparent adverse anesthesia problems. No complications reported per nursing. PEDRO NOGUERA CRNA Mar 14, 2022 14:46
--- NOTE | 2022-03-14 15:50 | Diagnostic Imaging Report ---
INDICATION: Fluoroscopy for port removal and new port placement. FINDINGS: Fluoroscopy was provided in the OR during a right-sided port removal and placement of a new left-sided port. Five seconds of fluoroscopic time was utilized. Two images were obtained. The left-sided port has its tip at the SVC/right atrial junction. IMPRESSION: Fluoroscopy during port removal and placement. Dictated by: Dictated on workstation # [id number]
== END 2022-03-14 15:55 | disposition home or self-care (01) ==
LOC: SDC 11:59
PROVIDERS: ATTEND Surgery
DX: T82.598A Other mechanical complication of other cardiac and vascular devices and implants, initial encounter (principal); I87.2 Venous insufficiency (chronic) (peripheral); F17.210 Nicotine dependence, cigarettes, uncomplicated
CPT/HCPCS: 36582; 76000; 87081; C1788

== ENCOUNTER → 2022-03-29 | Outpatient (CLI) | payer MEDICARE, OTHER ==
[~2022-03-29] VITALS: Ht 160 cm; Wt 90.9 kg
[~2022-03-29] MED LIST changes: +GOLIMUMAB IV SCH; +NS IV SCH
[2022-03-29 10:51] LABS: HEMATOCRIT 37 % (35-52); HEMOGLOBIN 12.2 g/dL (11.5-16.0); MEAN CORPUSCULAR HEMOGLOBIN 30 pg (25-34); MEAN CORPUSCULAR HGB CONC 33 g/dL (32-36); MEAN CORPUSCULAR VOLUME 91 fL (80-99); MEAN PLATELET VOLUME 10.4 fL (9.0-12.2); PLATELET COUNT 231 10^3/uL (130-400); WHITE BLOOD COUNT 6.8 10^3/uL (4.3-11.0)
[2022-03-29 11:20] LABS: ALBUMIN 3.9 GM/DL (3.2-4.5); BILIRUBIN,TOTAL 0.9 MG/DL (0.1-1.0); CALCIUM 9.5 MG/DL (8.5-10.1); CREATININE SERUM 0.74 MG/DL (0.60-1.30); POTASSIUM 3.6 MMOL/L (3.6-5.0); TOTAL PROTEIN 6.4 GM/DL (6.4-8.2)
[2022-03-29 11:45] VITALS: BP 142/82
== END ==
LOC: SDC 10:09
PROVIDERS: ATTEND Internal Medicine Rheumatology
DX: Z51.81 Encounter for therapeutic drug level monitoring (principal); M05.79 Rheumatoid arthritis with rheumatoid factor of multiple sites without organ or systems involvement
CPT/HCPCS: 36415; 80053; 85027; 96365

== ENCOUNTER → 2022-05-24 | Outpatient (CLI) | payer MEDICARE, OTHER ==
[~2022-05-24] MED LIST changes: -GOLIMUMAB IV SCH; -NS IV SCH
--- NOTE | 2022-05-24 10:39 | Diagnostic Imaging Report ---
PROCEDURE: MRI lumbar spine. TECHNIQUE: Multiplanar, multisequence MRI of the lumbar spine was performed without contrast. INDICATION: Chronic low back pain. History of previous laminectomy and fusion. Comparison with CT PET from 05/30/2021. FINDINGS: Laminectomy of L4 and L5 levels again noted, the bilateral pedicle screws and rods. Also intervertebral disc spacer at L4-L5 in good position without evidence of subsidence. Body height is well maintained throughout. Marrow signal is normal. There is a disc herniation at the L3-L4 level immediately above the fusion. Shows an extruded component as well which is migrated posterior to the L3 vertebral body on the left which is causing moderate severe encroachment upon the left lateral recess. There is a considerable associated facet and ligamentous hypertrophy causing rather severe encroachment upon the lateral recesses and foramen bilaterally. The L1-L2 and L2-L3 discs appear normal. The conus medullaris and cauda equina are normal.. IMPRESSION: 1. Postsurgical changes L4 and L5 show no complication. 2. Herniated disc L3-L4 with extruded fragment as well as considerable facet and ligamentous hypertrophy causing moderate severe encroachment upon the lateral recesses bilaterally with disc fragment extending into the left lateral recess. Dictated by: Dictated on workstation # [id number]
== END ==
LOC: RAD 09:30
PROVIDERS: ATTEND Nurse Practitioner
DX: M51.16 Intervertebral disc disorders with radiculopathy, lumbar region (principal); M89.38 Hypertrophy of bone, other site; Z98.1 Arthrodesis status
CPT/HCPCS: 72148

== ENCOUNTER → 2022-05-24 | Outpatient (CLI) | payer MEDICARE, OTHER ==
[~2022-05-24] VITALS: Wt 90.9 kg
[~2022-05-24] MED LIST changes: +GOLIMUMAB IV SCH; +NS IV SCH
[2022-05-24 10:53] VITALS: BP 148/73
[2022-05-24 11:20] LABS: HEMATOCRIT 37 % (35-52); HEMOGLOBIN 12.2 g/dL (11.5-16.0); MEAN CORPUSCULAR HEMOGLOBIN 30 pg (25-34); MEAN CORPUSCULAR HGB CONC 33 g/dL (32-36); MEAN CORPUSCULAR VOLUME 90 fL (80-99); MEAN PLATELET VOLUME 10.3 fL (9.0-12.2); PLATELET COUNT 206 10^3/uL (130-400); WHITE BLOOD COUNT 8.3 10^3/uL (4.3-11.0)
[2022-05-24 11:51] LABS: ALBUMIN 3.6 GM/DL (3.2-4.5); BILIRUBIN,TOTAL 0.7 MG/DL (0.1-1.0); CALCIUM 8.9 MG/DL (8.5-10.1); CREATININE SERUM 0.74 MG/DL (0.60-1.30); POTASSIUM 3.5 MMOL/L (3.6-5.0); TOTAL PROTEIN 6.2 GM/DL (6.4-8.2)
== END ==
LOC: SDC 09:53
PROVIDERS: ATTEND Internal Medicine Rheumatology
DX: Z51.81 Encounter for therapeutic drug level monitoring (principal); M05.79 Rheumatoid arthritis with rheumatoid factor of multiple sites without organ or systems involvement
CPT/HCPCS: 36415; 80053; 85027; 96365

== ENCOUNTER → 2022-07-27 | Outpatient (CLI) | payer MEDICARE, OTHER ==
[~2022-07-27] MED LIST changes: +GOLIMUMAB IV NR; -GOLIMUMAB IV SCH; +NS IV NR; -NS IV SCH
[2022-07-27 11:00] VITALS: BP 138/69
[2022-07-27 12:18] LABS: BASOPHILS # (AUTO) 0.1 10^3/uL (0.0-0.1); BASOPHILS % (AUTO) 1 % (0-10); EOSINOPHILS # (AUTO) 0.2 10^3/uL (0.0-0.3); EOSINOPHILS % (AUTO) 2 % (0-10); HEMATOCRIT 34 % (35-52); HEMOGLOBIN 11.2 g/dL (11.5-16.0); LYMPHOCYTES # (AUTO) 2.3 10^3/uL (1.0-4.0); LYMPHOCYTES % (AUTO) 31 % (12-44); MEAN CORPUSCULAR HEMOGLOBIN 30 pg (25-34); MEAN CORPUSCULAR HGB CONC 33 g/dL (32-36); MEAN CORPUSCULAR VOLUME 93 fL (80-99); MEAN PLATELET VOLUME 10.6 fL (9.0-12.2); MONOCYTES # (AUTO) 0.6 10^3/uL (0.0-1.0); MONOCYTES % (AUTO) 8 % (0-12); NEUTROPHILS # (AUTO) 4.2 10^3/uL (1.8-7.8); NEUTROPHILS % (AUTO) 58 % (42-75); PLATELET COUNT 212 10^3/uL (130-400); WHITE BLOOD COUNT 7.3 10^3/uL (4.3-11.0)
[2022-07-27 12:31] LABS: ALBUMIN 3.6 GM/DL (3.2-4.5)
[2022-07-27 12:32] LABS: POTASSIUM 3.2 MMOL/L (3.6-5.0)
[2022-07-27 12:33] LABS: CALCIUM 8.7 MG/DL (8.5-10.1)
[2022-07-27 12:34] LABS: TOTAL PROTEIN 6.1 GM/DL (6.4-8.2)
[2022-07-27 12:36] LABS: BILIRUBIN,TOTAL 0.7 MG/DL (0.1-1.0)
[2022-07-27 12:38] LABS: CREATININE SERUM 0.71 MG/DL (0.60-1.30)
== END ==
LOC: SDC 10:25
PROVIDERS: ATTEND Internal Medicine Rheumatology
DX: Z51.81 Encounter for therapeutic drug level monitoring (principal); M05.79 Rheumatoid arthritis with rheumatoid factor of multiple sites without organ or systems involvement
CPT/HCPCS: 36415; 80053; 85025; 96365

== ENCOUNTER → 2022-09-21 | Outpatient (CLI) | payer MEDICARE, OTHER ==
[~2022-09-21] VITALS: Wt 88.0 kg
[2022-09-21 10:53] VITALS: BP 150/72
[2022-09-21 10:57] VITALS: BP 150/72
[2022-09-21 11:08] LABS: HEMATOCRIT 39 % (35-52); HEMOGLOBIN 12.5 g/dL (11.5-16.0); MEAN CORPUSCULAR HEMOGLOBIN 30 pg (25-34); MEAN CORPUSCULAR HGB CONC 32 g/dL (32-36); MEAN CORPUSCULAR VOLUME 94 fL (80-99); MEAN PLATELET VOLUME 10.8 fL (9.0-12.2); PLATELET COUNT 240 10^3/uL (130-400); WHITE BLOOD COUNT 7.8 10^3/uL (4.3-11.0)
[2022-09-21 11:18] LABS: ALBUMIN 3.9 GM/DL (3.2-4.5); BILIRUBIN,TOTAL 0.6 MG/DL (0.1-1.0); CALCIUM 9.5 MG/DL (8.5-10.1); CREATININE SERUM 0.8 MG/DL (0.60-1.30); POTASSIUM 3.3 MMOL/L (3.6-5.0); TOTAL PROTEIN 6.6 GM/DL (6.4-8.2)
[2022-09-21 12:24] VITALS: BP 150/72
== END ==
LOC: SDC 10:03
PROVIDERS: ATTEND Internal Medicine Rheumatology
DX: M05.79 Rheumatoid arthritis with rheumatoid factor of multiple sites without organ or systems involvement (principal); Z51.81 Encounter for therapeutic drug level monitoring
CPT/HCPCS: 36415; 36591; 80053; 85027; 96365

== ENCOUNTER 2022-11-24 18:00 | Emergency (ER) | payer MEDICARE ==
[~2022-11-24 18:00] MED LIST changes: -GOLIMUMAB IV NR; -NS IV NR
--- NOTE | 2022-11-24 18:16 | ED GU-Female ---
General Chief Complaint: - Reproductive Stated Complaint: BLOOD IN URINE/PAIN/BURNING WHEN URINATING History of Present Illness Date Seen by Provider: Nov 24, 2022 Time Seen by Provider: 18:11 Initial Comments To 72-year-old female presents with some dysuria this started about a week ago with some pain and burning when she was urinating. And over the last day or 2 she is noticing a little bit of red tinge to it. She denies any fevers, chills, nausea or vomiting. She does not have any flank pain. She reports that she started drinking little bit more water earlier in the week and initially got little bit better before got worse again. Patient reports that similar to a urinary tract infection she had about 2 years ago. Allergies and Home Medications Allergies Coded Allergies: latex (Unverified Allergy, Unknown, 08/08/06) morphine (Unverified Allergy, Unknown, WATER BLISTERS, has rec Lortab in the past, 03/22/21) , PT THINKS IT IS DUE TO LATEX Patient Home Medication List Home Medication List Reviewed: Yes Cholecalciferol (Vitamin D3) (Vitamin D3) 25 Mcg Capsule, 25 MCG PO BID, (Reported) Entered as Reported by: PHILLIP TREVINO on 03/22/21 1517 Escitalopram Oxalate (Escitalopram Oxalate) 10 Mg Tablet, 10 MG PO DAILY, (Reported) Entered as Reported by: PHILLIP TREVINO on 03/22/21 151 Hydrochlorothiazide (Hydrochlorothiazide) 25 Mg Tablet, 25 MG PO DAILY, (Reported) Entered as Reported by: PHILLIP TREVINO on 03/22/21 1516 Hydrocodone/Acetaminophen (Hydrocodone-Acetamin 10-325 mg) 1 Each Tablet, 1 EA PO BID PRN for PAIN-MODERATE (5-7), (Reported) Entered as Reported by: PHILLIP TREVINO on 03/22/21 151 Losartan Potassium (Losartan Potassium) 50 Mg Tablet, 25 MG PO HS Prescribed by: MARQUIS MENDOZA on 03/25/21 0818 Kinsey-3 Fatty Acids/Fish Oil (Fish Oil 1,200 mg Softgel) 1 Each Capsule, 1 EACH PO BID, (Reported) Entered as Reported by: PHILLIP TREVINO on 03/22/21 1516 Simvastatin (Simvastatin) 20 Mg Tablet, 20 MG PO HS, (Reported) Entered as Reported by: PHILLIP TREVINO on 03/22/21 1516 Zinc Sulfate (Zinc) 50 Mg Tablet, 50 MG PO BID, (Reported) Entered as Reported by: PHILLIP TREVINO on 03/22/21 1517 Review of Systems Review of Systems Constitutional: no symptoms reported; No chills, No fever EENTM: no symptoms reported Respiratory: no symptoms reported Cardiovascular: no symptoms reported Gastrointestinal: no symptoms reported Genitourinary: burning, dysuria, hematuria, pain Musculoskeletal: no symptoms reported Skin: no symptoms reported Psychiatric/Neurological: No Symptoms Reported Endocrine: No Symptoms Reported Past Dgkimvq-Qxqgou-Scsszf Hx Immunizations Up To Date First/Initial COVID19 Vaccinat: 2020 Second COVID19 Vaccination Pepe: 2020 Past Medical History Surgeries: Yes (elbow, gallbladder, hysterectomy, total left knee, lumps removed left breas) Respiratory: No Currently Using CPAP: No Currently Using BIPAP: No Cardiac: Yes (POOR VENOUS INSUFFICIENCY) High Cholesterol, Hypertension Neurological: No Reproductive Disorders: No Gastrointestinal: No Musculoskeletal: Yes (RHEUMATOID ARTHRITIS) Rheumatoid Arthritis Endocrine: No HEENT: Yes (READERS) Cancer: No Psychosocial: No Depression Integumentary: No Blood Disorders: Yes Physical Exam Vital Signs Vital Signs - First Documented 11/24/22 18:06 Temp 36.8 Pulse 65 Resp 16 B/P (MAP) 179/97 (124) Pulse Ox 100 O2 Delivery Room Air Capillary Refill : Height, Weight, BMI Height: 5'3.00" Weight: 180lbs. 0.0oz. 81.842784pj; 35.50 BMI Method: General Appearance: WD/WN, no apparent distress Cardiovascular: normal peripheral pulses, regular rate, rhythm Respiratory: lungs clear, normal breath sounds Gastrointestinal: non tender, soft Back: no CVA tenderness Extremities: normal range of motion, non-tender Neurologic/Psychiatric: alert, normal mood/affect Skin: normal color, warm/dry Progress/Results/Core Measures Suspected Sepsis SIRS Temperature: Pulse: Respiratory Rate: Blood Pressure / Mean: Results/Orders Lab Results Laboratory Tests Test 11/24/22 18:08 Range/Units Urine Color LIGHT RED Urine Clarity CLOUDY Urine pH 7.0 5-9 Urine Specific [place] 1.020 1.016-1.022 Urine Protein 2+ H NEGATIVE Urine Glucose (UA) NEGATIVE NEGATIVE Urine Ketones TRACE H NEGATIVE Urine Nitrite POSITIVE H NEGATIVE Urine Bilirubin 1+ H NEGATIVE Urine Urobilinogen 1.0 < = 1.0 MG/DL Urine Leukocyte Esterase 3+ H NEGATIVE Urine RBC (Auto) 3+ H NEGATIVE Urine RBC TNTC H /HPF Urine WBC /HPF Urine Crystals NONE /LPF Urine Bacteria /HPF Urine Casts NONE /LPF Urine Mucus NEGATIVE /LPF Urine Culture Indicated YES My Orders Orders - YEN REYR L DO Ua Culture If Indicated (11/24/22 18:17) Urine Culture (11/24/22 18:08) Vital Signs/I&O 11/24/22 18:06 Temp 36.8 Pulse 65 Resp 16 B/P (MAP) 179/97 (124) Pulse Ox 100 O2 Delivery Room Air Capillary Refill : Departure Impression Primary Impression: Acute cystitis with hematuria Disposition: HOME, SELF-CARE Condition: Stable Departure-Patient Inst. Referrals: SARAH GUPTA MD (PCP/Family) Primary Care Physician Patient Instructions: Acute Cystitis (DC), Blood in Urine (Hematuria), Adult ED Add. Discharge Instructions: You may use qaeh-ucr-wjznshd Pyridium/Azo that is available at [facility] or other pharmacies to help with the discomfort along with Tylenol or ibuprofen All discharge instructions reviewed with patient and/or family. Voiced understanding. Scripts Nitrofurantoin Monohyd/M-Cryst (Macrobid 100 mg Capsule) 100 Mg Capsule 1 EA PO BID, #10 EACH 0 Refills Prov: SHEILA REY DO 11/24/22 SHEILA REY DO Nov 24, 2022 18:16
[2022-11-24 18:24] LABS: BILIRUBIN,URINE 1+ (NEGATIVE); CLARITY,URINE CLOUDY; COLOR,URINE LIGHT RED; GLUCOSE, URINE (UA) NEGATIVE (NEGATIVE); KETONES,URINE TRACE (NEGATIVE); LEUKOCYTE ESTERASE ,URINE 3+ (NEGATIVE); NITRITE,URINE POSITIVE (NEGATIVE); PROTEIN,URINE 2+ (NEGATIVE); RBC,URINE TNTC /HPF
[2022-11-24] MEDS ORDERED: NITR-65 PO (18:35)
[2022-11-24 18:40] VITALS: BP 179/97
[2022-11-24] MEDS ORDERED: NITROFURANTOIN 100 MG (MACROBID) CAPSULE PO ONE (18:45)
== END 2022-11-24 18:40 | disposition home or self-care (01) ==
LOC: EDUNIT# 18:00 → ER FS 18:02
DX: N30.01 Acute cystitis with hematuria (principal); Z91.040 Latex allergy status
CPT/HCPCS: 81000; 87077; 87088; 87186; 99283

== ENCOUNTER → 2023-05-07 | Outpatient (CLI) | payer MEDICARE, OTHER ==
[~2023-05-07] VITALS: Wt 90.0 kg
[~2023-05-07] MED LIST changes: +GOLIMUMAB IV SCH; +NITR-65 PO; +NS IV SCH
[2023-05-07 11:15] VITALS: BP 140/65
[2023-05-07 11:16] LABS: BASOPHILS # (AUTO) 0.1 10^3/uL (0.0-0.1); BASOPHILS % (AUTO) 1 % (0-10); EOSINOPHILS # (AUTO) 0.2 10^3/uL (0.0-0.3); EOSINOPHILS % (AUTO) 3 % (0-10); HEMATOCRIT 38 % (35-52); HEMOGLOBIN 12.3 g/dL (11.5-16.0); LYMPHOCYTES # (AUTO) 1.7 10^3/uL (1.0-4.0); LYMPHOCYTES % (AUTO) 26 % (12-44); MEAN CORPUSCULAR HEMOGLOBIN 29 pg (25-34); MEAN CORPUSCULAR HGB CONC 32 g/dL (32-36); MEAN CORPUSCULAR VOLUME 92 fL (80-99); MEAN PLATELET VOLUME 10.5 fL (9.0-12.2); MONOCYTES # (AUTO) 0.5 10^3/uL (0.0-1.0); MONOCYTES % (AUTO) 8 % (0-12); NEUTROPHILS # (AUTO) 4.2 10^3/uL (1.8-7.8); NEUTROPHILS % (AUTO) 62 % (42-75); PLATELET COUNT 297 10^3/uL (130-400); WHITE BLOOD COUNT 6.8 10^3/uL (4.3-11.0)
[2023-05-07 11:33] LABS: ALBUMIN 3.9 GM/DL (3.2-4.5); BILIRUBIN,TOTAL 0.8 MG/DL (0.1-1.0); CREATININE SERUM 0.78 MG/DL (0.60-1.30); POTASSIUM 3.1 MMOL/L (3.6-5.0); TOTAL PROTEIN 6.8 GM/DL (6.4-8.2)
== END ==
LOC: SDC 10:38
PROVIDERS: ATTEND Internal Medicine Rheumatology
DX: M05.79 Rheumatoid arthritis with rheumatoid factor of multiple sites without organ or systems involvement (principal)
CPT/HCPCS: 36415; 80053; 85025; 96365

== ENCOUNTER → 2023-07-02 | Outpatient (CLI) | payer MEDICARE, OTHER ==
[~2023-07-02] VITALS: Ht 170 cm; Wt 85.1 kg
[2023-07-02 10:15] VITALS: BP 160/80
[2023-07-02 10:32] LABS: BASOPHILS # (AUTO) 0.1 10^3/uL (0.0-0.1); BASOPHILS % (AUTO) 1 % (0-10); EOSINOPHILS # (AUTO) 0.2 10^3/uL (0.0-0.3); EOSINOPHILS % (AUTO) 3 % (0-10); HEMATOCRIT 38 % (35-52); HEMOGLOBIN 12.2 g/dL (11.5-16.0); LYMPHOCYTES # (AUTO) 1.9 10^3/uL (1.0-4.0); LYMPHOCYTES % (AUTO) 26 % (12-44); MEAN CORPUSCULAR HEMOGLOBIN 30 pg (25-34); MEAN CORPUSCULAR HGB CONC 32 g/dL (32-36); MEAN CORPUSCULAR VOLUME 92 fL (80-99); MEAN PLATELET VOLUME 10.9 fL (9.0-12.2); MONOCYTES # (AUTO) 0.5 10^3/uL (0.0-1.0); MONOCYTES % (AUTO) 7 % (0-12); NEUTROPHILS # (AUTO) 4.4 10^3/uL (1.8-7.8); NEUTROPHILS % (AUTO) 63 % (42-75); PLATELET COUNT 246 10^3/uL (130-400)
[2023-07-02 10:52] LABS: ALBUMIN 3.9 GM/DL (3.2-4.5); BILIRUBIN,TOTAL 0.8 MG/DL (0.1-1.0); CALCIUM 9.2 MG/DL (8.5-10.1); CREATININE SERUM 0.76 MG/DL (0.60-1.30); POTASSIUM 3.1 MMOL/L (3.6-5.0); TOTAL PROTEIN 6.6 GM/DL (6.4-8.2)
== END ==
LOC: SDC 10:03
PROVIDERS: ATTEND Internal Medicine Rheumatology
DX: M05.79 Rheumatoid arthritis with rheumatoid factor of multiple sites without organ or systems involvement (principal)
CPT/HCPCS: 36415; 80053; 85025; 96365